=== PATIENT | female | born 1945 | race Caucasian/White ===

== ENCOUNTER 2018-05-04 07:19 | Day surgery (SDC) | payer MEDICARE, BC ==
[2018-05-04] MEDS ORDERED: Midazolam 1 MG/ML 2 ML SDV ONE (07:53)
[2018-05-04] MEDS ORDERED: Propofol 200 MG/20 ML SDV ONE ×3 (07:53→09:22)
[2018-05-04] MEDS ORDERED: fentaNYL 100 MCG/2 ML SDV ONE (07:53)
[2018-05-04] MEDS: Lactated Ringers 1,000 ML IV SCH ×2 (08:00→09:53)
[2018-05-04] MEDS ORDERED: Scopolamine 1.5 MG Transdermal Patch ONE (09:22)
--- NOTE | 2018-05-04 11:06 | PROC ---
DATE OF PROCEDURE: 05/04/2018 INDICATIONS: Merel is a 72-year-old female who comes in for a colonoscopy. She has had change in bowel habits. The stool caliber has been small and she is concerned. The risks and benefits were explained to her and was taken to the OR. PROCEDURE IN DETAIL: Anesthesia was given by nurse bale sewer. The rectum was examined with a gloved finger and then the tube was placed in the rectum. With a gloved finger, there was no abnormality noted. The tube was advanced and did get to 20 cm, noticed significant amount of diverticula. The tube was then advanced to 40 cm. There were multiple diverticula. Unable to find the opening going into the remainder of the colon. The procedure was then terminated and the tube was slowly retracted. Again, noted the multiple diverticula. There was no rectal abnormality noted. The tube was removed. The patient tolerated the procedure well. PREOP: Change in bowel habits, small caliber stools. POSTOP: Failed colonoscopy when it went to 40 cm, unable to advance further. I will schedule an air contrast, lower GI, which will be done today. Minh Lao MD /[id number]
--- NOTE | 2018-05-04 11:43 | PROC ---
DATE OF PROCEDURE: 05/04/2018 INDICATIONS: Merle is a 72-year-old female, who comes in for an EGD because she has had trouble swallowing, food sticks, has a difficult time. The risks and benefits were explained and was brought to the OR. DESCRIPTION OF PROCEDURE: Anesthesia was given by the nurse heel cover splitter. During the procedure, we used 2 mg of Versed, 2 mL of fentanyl, and 600 mg of propofol. With a gloved finger, the tube was placed into the pharynx. The Olympus 180 scope was used and advanced under direct vision and guided into the esophagus. A difficult time getting into the stomach, and there was a narrowed area, but the scope passed through easily. Guided into the stomach, which revealed significant mucosal erythema of the gastric mucosa. The tube was passed into the duodenum, which revealed significant erythema there as well. The tube was advanced into the first and second part of the duodenum. Upon retraction of the tube, noted no ulcerations, such as significant duodenal mucosal erythema. The tube was brought back into the stomach. We got good observation of the greater and lesser curvature and the fundus, which revealed significant erythema. Biopsy was done of the antral area and there was no significant bleeding. Again, the esophagus was observed. The Savary guidewire was left in place and the tube was removed. We then used a 60-Maldivian Savary dilator and dilated the esophagus to 60 Maldivian. The tube was removed and there was a small amount of blood noted on the scope. I then used the gastroscope, and there was significant erythema noted of the mucosa and some bleeding. No rupture was noted. The gastroscope was then removed and the patient tolerated the procedure well. PREOP: Dysphagia. POSTOP: Esophageal stenosis dilated to 60 Maldivian. Minh Lao MD /[id number]
[2018-05-04] MEDS ORDERED: Barium Sulfate 105% w/v Susp 1,900 ML Bottle PO ONE (12:42)
--- NOTE | 2018-05-04 14:46 | CR ---
Barium Enema Comp CLINICAL HISTORY: Incomplete colonoscopy FINDINGS: Preliminary film of the abdomen is unremarkable. Barium flowed freely from the rectum to th e cecum. There is moderate diffuse diverticulosis in the sigmoid and descending colon. There is no ev idence of diverticulitis. The transverse and right colon are moderately redundant. The cecum is ascen ding. There are a few small filling defects in the right colon. There is a 10 x 12 mm filling defect in the right transverse colon near the hepatic flexure. This persistent on the postevacuation film. IMPRESSION: Moderate diverticulosis without evidence of diverticulitis Very redundant right colon with ascending cecum 10 x 12 mm filling defect in the right transverse colon was rather persistent. An adenomatous polyp i s not excluded
== END 2018-05-04 15:00 | disposition home or self-care (01) ==
LOC: JP.SDS 07:19
PROVIDERS: ATTEND Internal Medicine
DX: K22.2 Esophageal obstruction (principal); K31.89 Other diseases of stomach and duodenum; R19.4 Change in bowel habit; K57.30 Diverticulosis of large intestine without perforation or abscess without bleeding; I10 Essential (primary) hypertension; Z88.8 Allergy status to other drugs, medicaments and biological substances
CPT/HCPCS: 43239; 43248; 45330; 74270; A9270; J2250; J2704; J3010; J7120; 88305

== ENCOUNTER 2018-05-11 10:30 | Inpatient (IN) | payer MEDICARE, BC ==
[~2018-05-11 10:30] MED LIST: Dextrose 5%-Lactated Ringers 1,000 ML IV SCH; Ketamine 500 MG/5 ML MDV IV SCH; Neomycin/Polymyxin B 1 ML, Sodium Chloride 0.9% 750 ML ONE; Scopolamine 1.5 MG Transdermal Patch TRDERM SCH
[2018-05-11] MEDS ORDERED: cefOXitin 2 GM in Sodium Chloride 0.9% 50 ML IV ONE (11:00)
[2018-05-12] MEDS ORDERED: Scopolamine 1.5 MG Transdermal Patch TRDERM SCH (06:00)
[2018-05-12] MEDS ORDERED: Neomycin/Polymyxin B 1 ML, Sodium Chloride 0.9% 750 ML ONE ×2 (06:00)
[2018-05-12] MEDS ORDERED: Dextrose 5%-Lactated Ringers 1,000 ML IV SCH (06:00)
[2018-05-12] MEDS: cefOXitin 2 GM in Sodium Chloride 0.9% 50 ML IV ONE ×2 (07:00→11:52)
[2018-05-12] MEDS ORDERED: Rocuronium 50 MG/5 ML Vial ONE (07:06)
[2018-05-12] MEDS ORDERED: Ondansetron 4 MG/2 ML SDV ONE (07:06)
[2018-05-12] MEDS ORDERED: Neostigmine Methylsulfate 1 MG/ML 5 ML Syringe ONE (07:06)
[2018-05-12] MEDS ORDERED: fentaNYL 250 MCG/5 ML SDV ONE (07:06)
[2018-05-12] MEDS ORDERED: Dexamethasone 4 MG/ML SDV ONE (07:06)
[2018-05-12] MEDS ORDERED: Propofol 200 MG/20 ML SDV ONE (07:06)
[2018-05-12] MEDS ORDERED: Glycopyrrolate 0.2 MG/ML 5 ML MDV ONE (07:06)
[2018-05-12] MEDS ORDERED: Naloxone 0.4 MG/ML SDV IVPUSH PRN (07:30)
[2018-05-12] MEDS ORDERED: Ketamine 500 MG/5 ML MDV IV SCH (07:30)
[2018-05-12] MEDS ORDERED: Sodium Chloride 0.9% 10 ML ONE (07:34)
[2018-05-12] MEDS: Meropenem 500 MG SDV ONE ×2 (08:27→09:00)
[2018-05-12] MEDS ORDERED: Lactated Ringers 1,000 ML ONE (08:45)
[2018-05-12] MEDS ORDERED: Naloxone 0.4 MG/ML SDV IV PRN (11:16)
[2018-05-12] MEDS ORDERED: diphenhydrAMINE 50 MG/ML SDV IVPUSH PRN (11:16)
[2018-05-12] MEDS ORDERED: Ondansetron 4 MG/2 ML SDV IVPUSH PRN (11:18)
[2018-05-12] MEDS ORDERED: Metoclopramide 10 MG/2 ML SDV IVPUSH PRN (11:19)
[2018-05-12] MEDS ORDERED: hydrOXYzine HCl 100 MG/2 ML SDV IM PRN (11:20)
[2018-05-12] MEDS: Pantoprazole 40 MG Vial IV SCH (11:47)
[2018-05-12] MEDS: cefOXitin 2 GM in Sodium Chloride 0.9% 50 ML IV SCH ×2 (13:36→20:14)
[2018-05-12] MEDS ORDERED: Lactated Ringers 500 ML IV ONE (14:23)
[2018-05-12] MEDS: fentaNYL 2,500 MCG in Sodium Chloride 0.9% 200 ML EPIDUR SCH (14:31)
[2018-05-12] MEDS: Dextrose 5%-Lactated Ringers 1,000 ML IV SCH (19:08)
[2018-05-12] MEDS: Tamsulosin 0.4 MG Cap.ER PO SCH (20:15)
[2018-05-13] MEDS: cefOXitin 2 GM in Sodium Chloride 0.9% 50 ML IV SCH ×2 (01:20→08:24)
[2018-05-13] MEDS: Dextrose 5%-Lactated Ringers 1,000 ML IV SCH (02:03)
[2018-05-13] MEDS: Acetaminophen 500 MG Tab PO SCH ×4 (05:04→23:09)
[2018-05-13] MEDS: fentaNYL 2,500 MCG in Sodium Chloride 0.9% 200 ML EPIDUR SCH (07:26)
[2018-05-13] MEDS ORDERED: Dextrose 5%-0.9% NaCl with KCl 1,000 ML IV SCH (10:15)
[2018-05-13] MEDS: Magnesium Sulfate/Water 2 GM in Premix Bag 1 BAG IV SCH ×3 (11:27→22:26)
[2018-05-13] MEDS: Bisacodyl 5 MG Tab PO SCH ×2 (11:31→20:42)
[2018-05-13] MEDS: Ibuprofen 400 MG Tab PO SCH ×3 (11:31→22:27)
[2018-05-13] MEDS: Pantoprazole 40 MG Vial IV SCH (11:32)
[2018-05-13] MEDS: amLODIPine 10 MG Tab PO SCH (12:50)
[2018-05-13] MEDS: Hydrochlorothiazide 12.5 MG Cap PO SCH (12:50)
[2018-05-13] MEDS: traMADol 50 MG Tab PO SCH ×3 (12:51→22:28)
[2018-05-13] MEDS ORDERED: Dextrose 5%-Lactated Ringers 1,000 ML IV SCH (16:00)
[2018-05-13] MEDS: Dextrose 5%-0.9% NaCl with KCl 1,000 ML IV SCH (18:59)
[2018-05-13] MEDS: Tamsulosin 0.4 MG Cap.ER PO SCH (20:44)
[2018-05-14] MEDS: Dextrose 5%-0.9% NaCl with KCl 1,000 ML IV SCH ×2 (02:37→10:40)
[2018-05-14] MEDS: Magnesium Sulfate/Water 2 GM in Premix Bag 1 BAG IV SCH ×3 (03:48→15:35)
[2018-05-14] MEDS: Ibuprofen 400 MG Tab PO SCH ×4 (04:22→23:16)
[2018-05-14] MEDS: traMADol 50 MG Tab PO SCH ×5 (04:22→23:17)
[2018-05-14] MEDS: Acetaminophen 500 MG Tab PO SCH ×4 (05:18→23:18)
[2018-05-14] MEDS ORDERED: Lidocaine 1% with EPINEPHrine 1:100,000 50 ML MDV ONE (07:18)
[2018-05-14] MEDS ORDERED: Bupivacaine 0.5% 50 ML MDV ONE (07:18)
[2018-05-14] MEDS ORDERED: Propofol 200 MG/20 ML SDV ONE (07:53)
[2018-05-14] MEDS ORDERED: Ondansetron 4 MG/2 ML SDV ONE (07:53)
[2018-05-14] MEDS ORDERED: Ropivacaine 32 ML, Dexamethasone 8 MG, EPINEPHrine 0.4 MG, Sodium Chloride 0.9% 45.6 ML NERVRT SCH ×4 (08:00)
[2018-05-14] MEDS ORDERED: Meropenem 500 MG SDV ONE (08:13)
--- NOTE | 2018-05-14 11:27 | PN ---
DATE OF SERVICE: 05/13/2018 The patient has been afebrile with stable vital signs. No major problems were noted overnight. Urine output has just been adequate, so we will leave the IV rate going a little bit faster. Creatinine is stable at 0.7. It is notable that her sodium and chloride are both low. These will be supplemented by changing IV to D5 normal saline with 20 mEq of KCl per liter. Her magnesium is also low and that will be supplemented. Otherwise, we will continue the enhanced recovery protocol, starting with ibuprofen and tramadol today along with Senna Plus and Dulcolax oral tablets. The plan will be to proceed with a delayed primary closure and discontinuing the epidural catheter tomorrow. Her blood pressures are running in the one-teens to low 120 systolic, so we will restart the hydrochlorothiazide and amlodipine, but hold onto the lisinopril for now. Rich Sanchez MD /[id number]
--- NOTE | 2018-05-14 11:37 | PN ---
DATE OF SERVICE: 05/14/2018 The patient has been afebrile with stable vital signs. The epidural catheter will be taken out today. I think we can restart the amlodipine and hydrochlorothiazide. Otherwise, she was little bit nauseated in the morning. She did have 1360 in for oral intake yesterday. She is not passing any flatus or bowel movement as of yet. We will give her a Dulcolax suppository today. Otherwise, the wound will be closed, epidural will be stopped, and Sosa catheter coming out. Rich Sanchez MD Job #: [id number]
[2018-05-14] MEDS: Mupirocin Oint 22 GM Tube TOP SCH ×2 (12:03→21:43)
[2018-05-14] MEDS: Pantoprazole 40 MG Vial IV SCH (12:03)
[2018-05-14] MEDS: Metoclopramide 10 MG/2 ML SDV IVPUSH SCH ×2 (12:04→15:35)
[2018-05-14] MEDS: Hydrochlorothiazide 12.5 MG Cap PO SCH (13:36)
[2018-05-14] MEDS: Bisacodyl 5 MG Tab PO SCH ×2 (13:36→21:43)
[2018-05-14] MEDS: amLODIPine 10 MG Tab PO SCH (13:36)
--- NOTE | 2018-05-14 14:09 | OR ---
DATE OF PROCEDURE: 05/14/2018 PREOPERATIVE DIAGNOSIS: Open abdominal incision. POSTOPERATIVE DIAGNOSIS: Open abdominal incision. OPERATIVE PROCEDURE: Delayed primary closure of open abdominal incision. ANESTHESIA: Local plus IV sedation. INDICATION FOR PROCEDURE: The patient is 2 days status post total abdominal colectomy, at which time, the skin and subcutaneous tissue were felt to be at high risk for a wound infection and primary closure was undertaken. Given this, the patient is to undergo a delayed primary closure today. Potential risks including bleeding and infection were reviewed, and the patient wishes to proceed. DETAILS OF PROCEDURE: The patient was taken to the operating room and placed in a supine position, sitting somewhat upright in the 30-degree range to minimize aspiration risk. IV sedation was administered. Bilateral subcostal transversus abdominis plane blocks were then placed with continuous ultrasound guidance using the standard solution bilaterally. Following this, the dressing was taken down. The wound was examined and was found to be clean. The incision was then prepped and draped, anesthetized with 1% lidocaine mixed with Marcaine and irrigated with meropenem-containing saline solution. The incision was then drained with a 10-Belarusian round Mark-Vaz drain and brought through a small stab wound beneath the main incision. The incision was then closed with 3-0 Vicryl stitch deep and then mars for the skin. Dressing was applied. The patient was taken to the recovery room in a satisfactory condition. Rich Sanchez MD Job #: [id number]
[2018-05-14] MEDS ORDERED: Bisacodyl 10 MG Supp RECTAL ONE (16:00)
[2018-05-14] MEDS ORDERED: Bisacodyl 10 MG Supp RECTAL PRN (20:00)
[2018-05-14] MEDS: Tamsulosin 0.4 MG Cap.ER PO SCH (21:45)
[2018-05-15] MEDS: traMADol 50 MG Tab PO SCH ×2 (04:07→09:35)
[2018-05-15] MEDS: Ibuprofen 400 MG Tab PO SCH (04:08)
[2018-05-15] MEDS: Acetaminophen 500 MG Tab PO SCH ×2 (06:09→12:40)
[2018-05-15] MEDS: Mupirocin Oint 22 GM Tube TOP SCH (09:24)
[2018-05-15] MEDS: Hydrochlorothiazide 12.5 MG Cap PO SCH (09:25)
[2018-05-15] MEDS: amLODIPine 10 MG Tab PO SCH (09:28)
--- NOTE | 2018-05-15 09:55 | DISCH ---
ADMISSION DIAGNOSES: 1. 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 2. Colonic lesion. 3. Mixed hyperlipidemia. 4. Alcoholic liver disease. 5. Essential hypertension. DISCHARGE DIAGNOSES: Delayed primary closure on 05/14/2018 and exploratory laparotomy with total abdominal colectomy with proctostomy, removal of intraperitoneal mesh adherent to sigmoid colon, total abdominal hysterectomy with bilateral salpingo-oophorectomy and mobilization of omentum into pelvis for megacolon with multiple points of stricture secondary to diverticulitis along descending and sigmoid colons, hepatic flexure polyps, intraperitoneal mesh adherent to sigmoid colon, and large uterine mass. Date of surgery, 05/12/2018. HISTORY: Merle Valiente is a 72-year-old female with a colonic lesion. After preoperative evaluation and discussion of possible risks and possible complications, she wished to proceed with surgical procedure. HOSPITAL COURSE: Merle had her surgery on 05/12/2018 with a delayed primary closure on 05/14/2018. She had no operative complications. Her diet was advanced appropriately, as tolerated. She was voiding without difficulty. Pain was well managed. Activity was good. She did have a low magnesium, and this was replaced IV. She was able to be discharged to home without any complications on 05/15/2018. There was a duplex scan pending due to discrepancy in blood pressures between her right and left. PHYSICAL EXAMINATION: GENERAL: Merle Valiente is a 72-year-old female. VITAL SIGNS: Height is 5 feet 1 inch. Weight is 143 pounds. TPR is 98.8, 79, 16, and blood pressure 115/60. HEENT: Negative. NECK: Supple. HEART: Regular rate and rhythm. LUNGS: Clear. ABDOMEN: Mabie intact. She has 3 LONG drains; one in the midline, which there is no drainage in; the peripheral LONG drain showed bright red blood, which is new. According to the night nurse, prior to that, her drains have been serosanguineous. When last checked this morning on rounds, it was bright red. She had 140 out of one and 70 out of the other. Hemoglobin checked, and her hemoglobin from 05/13/2018 went from 11.1 down to 9.9. Abdominal binder has been on. EXTREMITIES: Without peripheral edema. Rich Sanchez MD, was notified of bleeding in LONG drains. DISPOSITION: Discharged to home. CONDITION: Stable and improving. FOLLOWUP APPOINTMENT: With Rich Sanchez MD, on 05/24/2018 at 11:15 a.m. DISCHARGE MEDICATIONS: Home Medications: 1. Tylenol Extra Strength 500 mg q.6 hours p.r.n. pain. 2. Tramadol 50 mg q.6 hours orally p.r.n. pain, #40. To resume home medications of; 1. Hydrochlorothiazide 12.5 mg daily. 2. Lisinopril 40 mg daily. 3. Multivitamin 1 tablet daily. 4. Amlodipine besylate 10 mg oral daily. DISCHARGE DIET: Usual diet as tolerated. Drink 8 to 10 glasses of water a day. ACTIVITY: No lifting greater than 10 pounds for 6 weeks. Other activity, walk 6 times daily inside your home. Driving, do not drive while on pain medication. May shower. DISCHARGE INSTRUCTIONS: Notify provider if any fever, increased pain, nausea, or vomiting. Keep site clean and dry. Wear abdominal binder for 6 weeks and then as tolerated. Special instruction, use incentive spirometer 10 times every hour while awake and to strip, empty, drain, and record LONG drain 4 times a day and when half full.
[2018-05-15] MEDS: Pantoprazole 40 MG Vial IV SCH (10:47)
[2018-05-15] MEDS ORDERED: Coagulation Factor VIIa Recombinant (per MCG) 2 MG Vial IVPUSH ONE (12:15)
--- NOTE | 2018-05-15 14:15 | US ---
VL Duplex Upr Ext Art Comp CLINICAL HISTORY: Asymmetric blood pressure , lower left upper extremity FINDINGS: Real-time and Doppler images were obtained from the left neck supraclavicular and the left upper extremity. Triphasic waveforms are seen in the common carotid artery. The biphasic waveforms ar e seen in the subclavian artery throughout its length the to the axillary artery and mid brachial art azael. Monophasic waveforms are seen in the ulnar radial and palmar arteries. There is a drop off of ve locity in the subclavian artery. IMPRESSION: No focal arterial stenosis is identified. There is a drop off of velocity in the left sub clavian artery. The given the clinical history of the diminished the left upper extremity blood press ure thoracic and axillary CTA or MRA should be considered.
--- NOTE | 2018-05-15 16:19 | OR ---
DATE OF PROCEDURE: 05/12/2018 PREOPERATIVE DIAGNOSES: 1. Megacolon with multiple points of stricture secondary to diverticular disease along the descending and sigmoid colon. 2. Hepatic flexure colonic polyp, not accessible to endoscopic removal. POSTOPERATIVE DIAGNOSES: 1. Megacolon with multiple points of stricture secondary to diverticular disease along the descending and sigmoid colon. 2. Hepatic flexure colonic polyp, not accessible to endoscopic removal. 3. Intraperitoneal mesh adherent to sigmoid colon. 4. Large uterine mass. OPERATIVE PROCEDURES: Exploratory laparotomy with; 1. Total abdominal colectomy with ileoproctostomy (05689). 2. Removal of a portion of intraperitoneal mesh adherent to sigmoid colon (57079). 3. Total abdominal hysterectomy and bilateral salpingo-oophorectomy (24655). 4. Mobilization of omentum into pelvis to displace small bowel in the event of indications for postoperative radiotherapy (92722). ANESTHESIA: General plus epidural. ASSISTANTS: 1. Norma Judd PA-C. 2. ADITI Armstrong. INDICATION FOR PROCEDURE: This is a 72-year-old presenting with a fairly-striking megacolon. The colonoscope was not able to be passed proximal to around the [id number] sigmoid colon, very likely related to diverticular disease. Subsequent barium enema showed a strikingly elongated and enlarged colon on the right side and multiple narrow stricturing and narrowing of the descending and sigmoid colon related to diverticular disease. She also has a polyp located in the hepatic flexure of the colon, which was not accessible to endoscopic sampling. Given this, after discussion, the patient would like to proceed with a total abdominal colectomy with ileorectal anastomosis. Potential risks including bleeding, infection, leaks from various GI tract closures, problems with bowel obstruction over time, as well as the possibility of cardiopulmonary, septic, or hemorrhagic complications leading to were discussed, and the patient wishes to proceed. She is aware that she will typically have 2 to 3 loose bowel movements today once the patient gets waste out postoperatively with the total abdominal colectomy. DETAILS OF PROCEDURE: The patient was taken to the operating room, had an epidural catheter placed, and the patient was then placed in a supine position. General endotracheal anesthetic was induced along with a Sosa catheter. A midline incision which eventually extended from roughly a handsbreadth's below the xiphoid to the pubis was made and carried down through the full-thickness of the abdominal wall. Upon entering the peritoneal cavity, the patient was noted to have the diverticular disease noted. She did have a previous mesh repair of the lower abdomen and a portion of this was adherent to the sigmoid colon. A portion of the intraperitoneal mesh was then excised and sent as a separate specimen. The mesh did need to be divided to a large extent in the lower part of the incision. Once this mesh was divided, the care was taken to cordon off that mesh with meropenem-containing soaked sponges to prevent contamination of the mesh. At this point, the patient was confirmed to have the extensive diverticular disease on the left colon. The polyp on the right side could not be obviously identified, but would clearly be removed within the resected specimen. At this point, the distal small bowel was divided with a NKECHI govea load. The omentum was freed up from the transverse colon. After that, then the peritoneal reflexion of the cecum and ascending colon was divided, and those portions of the colon reflected medially with care taken to avoid injury to the right ureter and duodenum. At this point, the rectum was divided with a NKECHI curved black load and, similarly, the lateral peritoneal reflection of the sigmoid colon and descending colon were then taken down with electrocautery along with blunt dissection, again, with care taken to avoid injury to the left ureter in this case. The attachments to the splenic flexure were then also taken down with a combination of blunt cautery and staple technique. This then allowed the total abdominal colectomy completed by division of the mesentry with a combination of govea and mesenteric loads, and the specimen was delivered from the field. At this point, further exploration revealed a roughly chicken-egg sized quite hard mass involving the uterus. There did not appear to be any tubal or peritoneal disease associated with this and it did not appear to be full thickness; however, it was quite hard and certainly suspicious for possible sarcoma. Give this, we then proceeded with total abdominal hysterectomy and bilateral salpingo-oophorectomy. The infundibulopelvic broad and round ligaments were then sequentially divided with NKECHI mars. The peritoneal reflection of the bladder on uterus was then divided and reflected downward onto the upper vagina. The cardinal ligaments were then taken with blue staple loads and after freeing the bladder somewhat further, a curved black NKECHI load was placed across the upper vagina and fired, thus removing the entire uterus, the tubes and ovaries. At this point, no further problems were noted. The abdomen was irrigated with antibiotic- containing saline solution. Two Mark-Vaz drains were placed, one on the right side and one on the left side, then positioned, and then taken down the colic gutters and down toward the pelvis. In the event that the patient might need postoperative radiotherapy in the pelvis, the omentum was then mobilized down into the pelvis to displace small bowel in those areas and fixed there with some 3-0 Vicryl stitch. The midline fascia was then approximated with #2 Vicryl stitch. The skin and subcutaneous tissue were felt to be at high risk for a wound infection should those be closed, and so they were packed open for a planned delayed primary closure in 48 hours. The patient was taken to the recovery room in a satisfactory condition. There were no evident complications. Physician's administrative assistant front desk, Norma Judd, played an essential role in assisting in this case, helping to position the patient, retract structures as needed, as well as suturing and cutting sutures when indicated. Her presence improved patient safety and decreased the operative time. Rich Sanchez MD Job #: [id number]
== END 2018-05-15 13:15 | disposition home or self-care (01) | DRG 330 ==
LOC: JP.SDSSCHI 05-12 05:22 → JP.SDS 05-12 05:22 → EDSTATUS 05-12 07:15 → JP.2SS 05-12 09:00
PROVIDERS: ADMIT Surgery; ATTEND Surgery
PROC: 0DTG0ZZ Resection of Left Large Intestine, Open Approach (ICD-10-PCS; principal; 2018-05-12)
PROC: 0DTF0ZZ Resection of Right Large Intestine, Open Approach (ICD-10-PCS; 2018-05-12)
PROC: 0D1B0ZP Bypass Ileum to Rectum, Open Approach (ICD-10-PCS; 2018-05-12)
PROC: 0UT90ZZ Resection of Uterus, Open Approach (ICD-10-PCS; 2018-05-12)
PROC: 0UT20ZZ Resection of Bilateral Ovaries, Open Approach (ICD-10-PCS; 2018-05-12)
PROC: 0UT70ZZ Resection of Bilateral Fallopian Tubes, Open Approach (ICD-10-PCS; 2018-05-12)
PROC: 0DNU0ZZ Release Omentum, Open Approach (ICD-10-PCS; 2018-05-12)
PROC: 0WPF0JZ Removal of Synthetic Substitute from Abdominal Wall, Open Approach (ICD-10-PCS; 2018-05-12)
PROC: 0WQF0ZZ Repair Abdominal Wall, Open Approach (ICD-10-PCS; 2018-05-14)
DX: K59.39 Other megacolon (principal); K57.32 Diverticulitis of large intestine without perforation or abscess without bleeding; E87.1 Hypo-osmolality and hyponatremia; K66.0 Peritoneal adhesions (postprocedural) (postinfection); N85.9 Noninflammatory disorder of uterus, unspecified; Z47.1 Aftercare following joint replacement surgery; I10 Essential (primary) hypertension; E78.2 Mixed hyperlipidemia; K70.9 Alcoholic liver disease, unspecified; K63.9 Disease of intestine, unspecified; I99.8 Other disorder of circulatory system; E83.42 Hypomagnesemia; E87.8 Other disorders of electrolyte and fluid balance, not elsewhere classified; Z88.8 Allergy status to other drugs, medicaments and biological substances
CPT/HCPCS: 36415; 51702; 80048; 80053; 82378; 83735; 83880; 84100; 85027; 93930; 93930-26; 94762; A9270-GY; C9113; J0131; J0171; J0694; J1100; J2185; J2405; J2704; J2710; J2765; J2795; J3010; J3475; J3480; J7042; J7050; J7120; J7189

== ENCOUNTER 2018-05-16 06:58 | Emergency (ER) | payer MEDICARE, BC ==
--- NOTE | 2018-05-16 08:06 | EDM.PDOC ---
ED HPI GENERAL MEDICAL PROBLEM - General Chief Complaint: Gastrointestinal Problem Stated Complaint: VOMITING HAD COLON SURGERY Time Seen by Provider: 05/16/18 07:45 Source of Information: Reports: Patient, Family History Limitations: Reports: No Limitations - History of Present Illness INITIAL COMMENTS - FREE TEXT/NARRATIVE: 72-year-old female was discharged yesterday after partial colectomy has had a setback over the past 24 hours with nausea and vomiting, loose green stools, generalized malaise and weakness. Her main concern is that even her medications this morning she vomited, she feels her abdomen is more distended. No fevers. Onset: Gradual (Over the past 24 hours) Location: Reports: Abdomen Severity: Moderate Worsens with: Reports: Other (Taking anything orally causes increased nausea and emesis) Abdomen Pain Score (Numeric/FACES): 9 - Related Data Allergies Allergy/AdvReac Type Severity Reaction Status Date / Time venom-honey bee Allergy Severe Anaphylactic Verified 05/16/18 07:54 [bee venom (honey bee)] Shock lovastatin Allergy Cannot Verified 05/17/18 11:00 Remember Home Meds: Home Meds Hydrochlorothiazide 12.5 mg PO DAILY 11/19/14 [History] Lisinopril 40 mg PO DAILY 11/19/14 [History] amLODIPine Besylate [Amlodipine Besylate] 5 mg PO DAILY 11/19/14 [History] Acetaminophen [Tylenol Extra Strength] 1,000 mg PO Q6H tablet 05/15/18 [Rx] Past Medical History HEENT History: Reports: Impaired Vision Other HEENT History: wears glasses Cardiovascular History: Reports: Hypertension, SOB on Exertion Gastrointestinal History: Reports: Chronic Constipation, Chronic Diarrhea, Colon Polyp [employer]PER[employer] History: Reports: Musculoskeletal History: Reports: Arthritis Neurological History: Reports: Concussion Hematologic History: Reports: Anemia Dermatologic History: Reports: Eczema - Infectious Disease History Infectious Disease History: Reports: Chicken Pox, Measles, Mumps - Past Surgical History HEENT Surgical History: Reports: Cataract Surgery, Other (See Below) Other HEENT Surgeries/Procedures: wisdom teeth GI Surgical History: Reports: Colonoscopy, Hernia, Abdominal, Hernia, Inguinal, Small Bowel Female Surgical History: Reports: Hysterectomy, Oophorectomy Neurological Surgical History: Reports: Other (See Below) Other Neurological Surgeries/Procedures: coccyx removed due to a "growth" Musculoskeletal Surgical History: Reports: Other (See Below) Other Musculoskeletal Surgeries/Procedures:: torn meniscus on right knee Social & Family History - Family History Family Medical History: Noncontributory Neurological: Reports: Seizure Endocrine/Metabolic: Reports: Hypothyroidism Oncologic: Reports: Breast, Colon, Other (See Below) Other Oncologic Family History: stomach - Tobacco Use Smoking Status *Q: Never Smoker - Caffeine Use Caffeine Use: Reports: Coffee - Alcohol Use Days Per Week of Alcohol Use: 7 Number of Drinks Per Day: 2 Total Drinks Per Week: 14 - Recreational Drug Use Recreational Drug Use: No ED ROS GENERAL - Review of Systems Review Of Systems: See Below Constitutional: Reports: Chills. Denies: Fever HEENT: Reports: No Symptoms Respiratory: Denies: Shortness of Breath Cardiovascular: Denies: Chest Pain GI/Abdominal: Reports: Abdominal Pain, Diarrhea, Nausea, Vomiting : Reports: No Symptoms Neurological: Reports: No Symptoms ED EXAM, GI/ABD - Physical Exam Exam: See Below Exam Limited By: No Limitations General Appearance: Alert, Mild Distress (Patient appears uncomfortable) Eyes: Bilateral: Normal Appearance Head: Atraumatic Respiratory/Chest: No Respiratory Distress, Lungs Clear Cardiovascular: Regular Rate, Rhythm GI/Abdominal Exam: Normal Bowel Sounds, Soft, Distended (Mild distention is possible, she has diffuse tenderness but no focal guarding. Incision looks excellent.) Extremities: No: Pedal Edema Neurological: Alert, Oriented Skin Exam: Warm, Dry, Ecchymosis (There is ecchymosis and bruising typical of expectations postsurgically on the abdomen) Course - Vital Signs Last Recorded V/S: Last Vital Signs Temp 97.3 F 05/16/18 07:40 Pulse 93 05/16/18 07:40 Resp 16 05/16/18 07:40 BP 153/72 H 05/16/18 07:40 Pulse Ox 95 05/16/18 07:40 - Orders/Labs/Meds Meds: Medications Discontinued Medications Generic Name Dose Route Start Last Admin Trade Name Freq PRN Reason Stop Dose Admin Ondansetron HCl 4 mg 05/16/18 08:25 05/16/18 08:30 Zofran Odt PO 05/16/18 08:26 4 mg ONETIME ONE Administration - Re-Assessments/Exams Free Text/Narrative Re-Assessment/Exam: 06/19/18 08:05 I am concerned this patient may have developed a postoperative ileus, and a flat and upright x-ray will be obtained. 05/16/18 08:26 Two-view abdominal x-ray actually looks reassuring. Patient was given a 4 mg sublingual dose of Zofran with 5 additional doses to take home. She can return if not improving satisfactorily. Departure - Departure Time of Disposition: 19:01 Disposition: Home, Self-Care 01 Condition: Fair Clinical Impression: Postoperative nausea and vomiting - Discharge Information Instructions: Nausea and Vomiting, Adult, [id number] Referrals: Minh Lao Sr, MD [Primary Care Provider] - Forms: ED Department Discharge Care Plan Goals: Try Zofran every 6 hours to control nausea and continue your current medications as prescribed. Increase diet slowly and as tolerated, return anytime if worsening or concerns.
[2018-05-16] MEDS ORDERED: Ondansetron 4 MG Tab.DIS PO ONE (08:25)
--- NOTE | 2018-05-16 09:30 | CR ---
Abdomen 2V AP Flat Upright CLINICAL HISTORY: Abdominal pain, postop FINDINGS: There are scattered air-filled loops of small bowel with a few scattered air-fluid levels. There are surgical drains in the abdomen. Impression: Recent abdominal surgery with surgical drains in place Small bowel distention in a nonspecific pattern. This may represent postop ileus
== END 2018-05-16 09:02 | disposition home or self-care (01) ==
LOC: JP.ED 06:58
DX: K91.0 Vomiting following gastrointestinal surgery (principal); I10 Essential (primary) hypertension; M19.90 Unspecified osteoarthritis, unspecified site; Z91.030 Bee allergy status; Z88.8 Allergy status to other drugs, medicaments and biological substances; Z79.899 Other long term (current) drug therapy
CPT/HCPCS: 74019; 99284; A9270

== ENCOUNTER 2018-05-17 09:32 | Inpatient (IN) | payer MEDICARE, BC ==
[2018-05-17] MEDS ORDERED: HYDROmorphone/Normal Saline 15 MG/30 ML PCA IV PRN (09:57)
[2018-05-17] MEDS ORDERED: Naloxone 0.4 MG/ML SDV IV PRN (10:00)
[2018-05-17] MEDS ORDERED: MVI, Adult with Vitamin K 10 ML, Chromium/Copper/Mang/Selen/Zn 1 ML, Thiamine 100 MG in... IV ONE ×4 (11:00)
[2018-05-17] MEDS: amLODIPine 10 MG Tab PO SCH (11:08)
[2018-05-17] MEDS: Metoclopramide 10 MG/2 ML SDV IVPUSH SCH ×3 (11:10→23:24)
[2018-05-17] MEDS: Ondansetron 4 MG/2 ML SDV IVPUSH SCH ×4 (11:10→21:51)
[2018-05-17] MEDS: Pantoprazole 40 MG Vial IV SCH ×2 (11:10→23:24)
[2018-05-17] MEDS: Dextrose 5%-Lactated Ringers 1,000 ML IV SCH ×2 (13:51→21:51)
[2018-05-18] MEDS: Ondansetron 4 MG/2 ML SDV IVPUSH SCH ×3 (02:25→09:36)
[2018-05-18] MEDS: Metoclopramide 10 MG/2 ML SDV IVPUSH SCH ×4 (05:10→22:16)
[2018-05-18] MEDS: Dextrose 5%-Lactated Ringers 1,000 ML IV SCH ×2 (06:12→18:19)
--- NOTE | 2018-05-18 07:12 | PCM.HP ---
H&P History of Present Illness - General Date of Service: 05/18/18 Admit Problem/Dx: Admission Diagnosis/Problem Admission Diagnosis/Problem Ileus Source of Information: Patient History Limitations: Reports: No Limitations - History of Present Illness Initial Comments - Free Text/Narative: Patient had a total colectomy and a total hysterectomy on 05/12/2018. She had no pain on the day of discharge, but once the epidural and pain medication wore off she was experiencing sharp constant pain localized inferior to the umbilicus and laterally to the right side. The pain had not improved nor has anything relived the symptoms. She had tried Tylenol and Tramadol. Although the Tylenol did not work as she was not able to swallow it and the Tramadol made her experience hallucinations as stated by the patient. Prior to surgery she was also experiencing pain, but it was not as bad in comparison to now. Laying down has helped relive the pain although trying to sit up has been excruciating. The patient was admitted through the ER when she could no longer tolerate the pain at home. She has had a loss of appetite and has not been able to swallow food while at home. She states that it gets to about mid throat and gets "stuck" and then she coughs it back up. She has been experiencing nausea, vomiting and diarrhea since discharge. She denies chest pain, SOB, ALMAZAN, coughing , headaches, fever, chills, night sweats, malaise, lightheadedness, syncope, difficulty urinating or mike blood in the stool. Onset of Symptoms: Reports: Other (Since surgery 05/12/2018) Duration of Symptoms: Reports: Constant Location: Reports: Abdomen Quality: Reports: Sharp Severity: Severe Improves with: Reports: None (Tried to take tyleno and could not keep it down. Tried tramadol and was seeing things so did not take it again. Has not taken tramado in the past and refuses to take it again for pain. ) Worsens with: Reports: Eating (No appetite. ), Immobilization (Laying down and getting back up. ) Context: Reports: Rest Associated Symptoms: Reports: Loss of Appetite, Malaise, Nausea/Vomiting (Could not eat. States everything made it to midway through throat and came back up. ) Abdomen Pain Score (Numeric/FACES): 6 - Related Data Allergies/Adverse Reactions: Allergies Allergy/AdvReac Type Severity Reaction Status Date / Time venom-honey bee Allergy Severe Anaphylactic Verified 05/16/18 07:54 [bee venom (honey bee)] Shock lovastatin Allergy Cannot Verified 05/17/18 11:00 Remember Home Medications: Home Meds Hydrochlorothiazide 12.5 mg PO DAILY 11/19/14 [History] Lisinopril 40 mg PO DAILY 11/19/14 [History] amLODIPine Besylate [Amlodipine Besylate] 5 mg PO DAILY 11/19/14 [History] Acetaminophen [Tylenol Extra Strength] 1,000 mg PO Q6H tablet 05/15/18 [Rx] Past Medical History HEENT History: Reports: Impaired Vision Other HEENT History: wears glasses Cardiovascular History: Reports: Hypertension (Lisinopril and Amlodipine. 10 year history.) Gastrointestinal History: Reports: Chronic Constipation, Chronic Diarrhea (Has not had C. Diff in the past.), Colon Polyp, Fecal Incontinence (Denies.) Other Gastrointestinal History: The chronic diarrhea and constipation was going on for 3-4 months prior to surgery. Patient states it was always one or the other never a soft formed bowel movement. MONUMENT CARVER History: Reports: Other OB/BYN History: removal of ovaries and uterus. Musculoskeletal History: Reports: Arthritis (Right shoulder. Osteoarthritis.) Neurological History: Reports: Concussion (Had three in the past.) Hematologic History: Reports: Anemia (Many years ago. Is no longer being treated for the anemia.) Dermatologic History: Reports: Eczema (Havn't had in many years. Had a prior history during childhood.) - Infectious Disease History Infectious Disease History: Reports: Chicken Pox, Measles, Mumps - Past Surgical History HEENT Surgical History: Reports: Cataract Surgery, Other (See Below) Other HEENT Surgeries/Procedures: wisdom teeth GI Surgical History: Reports: Colon, Colonoscopy, Hernia, Abdominal, Hernia, Inguinal, Polypectomy, Small Bowel Female Surgical History: Reports: Hysterectomy, Oophorectomy Neurological Surgical History: Reports: Other (See Below) Other Neurological Surgeries/Procedures: coccyx removed due to a "growth" Musculoskeletal Surgical History: Reports: Other (See Below) Other Musculoskeletal Surgeries/Procedures:: Torn meniscus on right knee. Surgery for the wrist in 2000. Broke both left ulna and radius. Had reconstructive surgery in [place]. Social & Family History - Family History Other Cardiac Family History: Denies family history of OH, atherosclosis, HF. Other GI Family History: Mom had colon cancer. Brother passed had gastric cancer and a cancerous neck mass diagnosed in his 60s. Dad had gastric cancer. Brother 24 of stomach cancer. Denies diverticulitis and Chrons disease. Neurological: Reports: Seizure (Brother that at 24 had history of epileptic seizures.) Endocrine/Metabolic: Reports: Hyperthyroidism (Daughter had thyroid removed.) Oncologic: Reports: Breast, Colon (See GI FH.), Other (See Below) Other Oncologic Family History: stomach - Tobacco Use Smoking Status *Q: Former Smoker (Smoked for 26 years and has quit for 27 years. ) Years of Tobacco use: 26 Packs/Tins Daily: 1 Used Tobacco, but Quit: Yes Month/Year Tobacco Last Used: January 1991 Second Hand Smoke Exposure: No - Caffeine Use Caffeine Use: Reports: Coffee, Tea Caffeine Use Comment: about 1 cup per day - Alcohol Use Days Per Week of Alcohol Use: 6 Number of Drinks Per Day: 2 Total Drinks Per Week: 12 Date of Last Drink: 05/03/18 Time of Last Drink: 21:00 Alcohol Use Frequency: Daily (Has a glass or two of wine with dinner.), Socially - Recreational Drug Use Recreational Drug Use: No - Living Situation & Occupation Living situation: Reports: (Living at home alone. 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 ), Decreased Appetite, Distension, Nausea, Vomiting (Due to not being able to swallow. ) Exam - Exam Exam: See Below - Vital Signs Vital Signs: Last Vital Signs Temp 99.1 F 05/18/18 02:09 Pulse 83 05/18/18 02:09 Resp 18 05/18/18 02:09 BP 122/58 L 05/18/18 02:09 Pulse Ox 95 05/18/18 02:09 Weight: 148 lb 6.4 oz - Exam General: Alert, Oriented, Cooperative HEENT: Conjunctiva Clear, EOMI, Hearing Intact, Mucosa Moist & [place], Nares Patent, Normal Nasal Septum Neck: Supple, Trachea Midline, Full Range of Motion Lungs: Clear to Auscultation, Normal Respiratory Effort Cardiovascular: Regular Rate, Regular Rhythm GI/Abdominal Exam: Normal Bowel Sounds, Distended, Guarding, Tender (Localized inferior to umbilicus and laterally to the right side. Left side not tender. ) Extremities: Normal Inspection, Normal Range of Motion, Non-Tender Skin: Warm, Dry, Intact Neuro Extensive - Mental Status: Alert, Oriented x3, Normal Mood/Affect, Normal Cognition, Memory Intact Psychiatric: Alert, Normal Affect, Normal Mood - Patient Data Lab Results Last 24 hrs: Laboratory Results - last 24 hr 05/18/18 05/18/18 Range/Units 04:37 04:37 WBC 10.3 (4.5-11.0) K/uL RBC 3.46 (3.30-5.50) M/uL Hgb 11.4 L (12.0-15.0) g/dL Hct 34.7 L (36.0-48.0) % MCV 100 H (80-98) fL MCH 33 H (27-31) pg MCHC 33 (32-36) % Plt Count 514 H (150-400) K/uL Sodium 134 L (140-148) mmol/L Potassium 3.3 L (3.6-5.2) mmol/L Chloride 95 L (100-108) mmol/L Carbon Dioxide 31 (21-32) mmol/L Anion Gap 11.3 (5.0-14.0) mmol/L BUN 5 L (7-18) mg/dL Creatinine 0.6 (0.6-1.0) mg/dL Est Cr Clr Drug Dosing 64.89 mL/min Estimated GFR (MDRD) > 60 (>60) Glucose 151 H (74-106) mg/dL Calcium 7.6 L (8.5-10.1) mg/dL Phosphorus 2.2 L (2.5-4.9) mg/dL Magnesium 1.6 L (1.8-2.4) mg/dL Total Bilirubin 0.5 (0.2-1.0) mg/dL AST 25 (15-37) U/L ALT 24 (12-78) U/L Alkaline Phosphatase 61 (46-116) U/L NT-Pro-B Natriuret Pep 561 H (5-125) pg/mL Total Protein 5.1 L (6.4-8.2) g/dL Albumin 2.1 L (3.4-5.0) g/dL Globulin 3.0 (2.3-3.5) g/dL Albumin/Globulin Ratio 0.7 L (1.2-2.2) Result Diagrams: 05/18/18 04:37 05/18/18 04:37 Lopez Results Last 24 hrs: Microbiology 05/18/18 04:21 Clostridium difficile (PCR) - Final Stool / Feces Positive C. Diff Toxin Problem List Initiated/Reviewed/Updated: Yes Orders Last 24hrs: Active Orders 24 hr Category Date Time Status Admission Status [Patient Status] [ADT] Routine ADT 05/17/18 09:15 Active Ambulate [RC] QID Care 05/17/18 09:50 Active Drain Management [RC] Q12H Care 05/17/18 09:54 Active Up to Chair [RC] QID Care 05/17/18 09:50 Active Vital Signs [RC] Q4H Care 05/17/18 09:50 Active NPO [Nothing Per Oral Diet] [DIET] Diet 05/17/18 Lunch Active Abdomen 2V AP Flat Upright [CR] Routine Exams 05/18/18 04:00 Taken CLOSTRIDIUM DIFFICILE BY PCR [RM] Routine Lab 05/18/18 04:21 Ordered Dextrose 5%-Lactated Ringers 1,000 ml Med 05/17/18 13:00 Active IV ASDIRECTED HYDROmorphone/Normal Saline [Dilaudid DICE TABLE OPERATOR 15 MG in NS Med 05/17/18 09:57 Active 30 ML] 0 mg IV ASDIRECTED PRN Metoclopramide [Reglan] Med 05/17/18 11:00 Active 10 mg IVPUSH Q6H Naloxone [Narcan] Med 05/17/18 10:00 Active 0.1 mg IV ASDIRECTED PRN Ondansetron [Zofran] Med 05/17/18 10:00 Active 4 mg IVPUSH Q4H Pantoprazole [ProTONIX IV] Med 05/17/18 11:00 Active 40 mg IV Q12H Pneumococcal Polyvalent-23 Vac [Pneumovax 23] Med 05/18/18 09:00 Once 0.5 ml IM .ONCE ONE amLODIPine [Norvasc] Med 05/17/18 11:00 Active 10 mg PO DAILY Medication Orders Amlodipine Besylate (Norvasc) 10 mg PO DAILY [facility] Last Admin: 05/17/18 11:08 Dose: Hydromorphone HCl (Dilaudid Histological Illustrator 15 Mg In Ns 30 Ml) 0 mg IV ASDIRECTED PRN; Protocol PRN Reason: DICE TABLE OPERATOR PAIN CONTROL Last Admin: 05/17/18 11:34 Dose: 15 mg Dextrose/Lactated Ringer's (Dextrose 5%-Lactated Ringers) 1,000 mls @ 125 mls/ hr IV ASDIRECTED [facility] Last Admin: 05/18/18 06:12 Dose: 125 mls/hr Infusion: 05/18/18 05:51 Dose: 125 mls/hr Admin: 05/17/18 21:51 Dose: 125 mls/hr Infusion: 05/17/18 21:51 Dose: 125 mls/hr Admin: 05/17/18 13:51 Dose: 125 mls/hr Metoclopramide HCl (Reglan) 10 mg IVPUSH Q6H [facility] Last Admin: 05/18/18 05:10 Dose: 10 mg Admin: 05/17/18 23:24 Dose: 10 mg Admin: 05/17/18 16:51 Dose: 10 mg Admin: 05/17/18 11:10 Dose: 10 mg Naloxone HCl (Narcan) 0.1 mg IV ASDIRECTED PRN PRN Reason: decreased respiratory rate Ondansetron HCl (Zofran) 4 mg IVPUSH Q4H [facility] Last Admin: 05/18/18 06:01 Dose: 4 mg Admin: 05/18/18 02:25 Dose: 4 mg Admin: 05/17/18 21:51 Dose: 4 mg Admin: 05/17/18 17:47 Dose: 4 mg Admin: 05/17/18 13:47 Dose: 4 mg Admin: 05/17/18 11:10 Dose: 4 mg Pantoprazole Sodium (Protonix Iv) 40 mg IV Q12H [facility] Last Admin: 05/17/18 23:24 Dose: 40 mg Admin: 05/17/18 11:10 Dose: 40 mg Pneumococcal Polyvalent Vaccine (Pneumovax 23) 0.5 ml IM .ONCE ONE Stop: 05/18/18 09:01 Assessment/Plan Comment:: Assessment: Status post open total colectomy and total hysterectomy. Admitted for post operative ileus. Plan: 1. Positive for C. Diff 2. Start Vancomycin 200mg po QID 3. CBC/CMP/Mag/Phosphorus in am 4. Abdomen 2V AP flat upright for ileus in am 5. Clear liquid diet without solids or cereal 6. Shower 7. Drain removal LONG drain #2 8. Reevaluate prn or in am
--- NOTE | 2018-05-18 08:54 | CR ---
Abdomen 2V AP Flat Upright CLINICAL HISTORY: Ileus FINDINGS: There is persistent moderate small bowel distention similar to prior study. There are scatt ered air-fluid levels. Patient is status post extensive abdominal surgery. Surgical drains remain in place. IMPRESSION: Persistent small bowel distention with scattered air-fluid levels. This may represent pos top ileus Continued follow-up recommended until resolution
[2018-05-18] MEDS ORDERED: Pneumococcal Polyvalent-23 Vaccine 0.5 ML SDV IM ONE (09:00)
[2018-05-18] MEDS: Vancomycin 250 MG/5 ML ML Oral Solution PO SCH ×3 (09:37→22:14)
[2018-05-18] MEDS: amLODIPine 10 MG Tab PO SCH (09:38)
[2018-05-18] MEDS: Pantoprazole 40 MG Vial IV SCH ×2 (10:11→22:16)
[2018-05-18] MEDS: Magnesium Sulfate/Water 2 GM in Premix Bag 1 BAG IV SCH ×2 (13:25→19:45)
[2018-05-18] MEDS: Potassium Chloride 20 MEQ, Lidocaine 1% 2 ML in Sodium Chloride 0.9% 100 ML IV SCH ×3 (14:14→18:20)
[2018-05-18] MEDS: Ondansetron 4 MG/2 ML SDV IVPUSH PRN (22:01)
[2018-05-19] MEDS: Dextrose 5%-Lactated Ringers 1,000 ML IV SCH ×3 (00:19→17:23)
[2018-05-19] MEDS: Magnesium Sulfate/Water 2 GM in Premix Bag 1 BAG IV SCH ×4 (01:20→20:23)
[2018-05-19] MEDS: Vancomycin 250 MG/5 ML ML Oral Solution PO SCH ×4 (05:31→22:28)
[2018-05-19] MEDS: Metoclopramide 10 MG/2 ML SDV IVPUSH SCH ×4 (05:31→23:54)
[2018-05-19] MEDS ORDERED: Potassium Chloride 20 MEQ, Lidocaine 1% 2 ML in Sodium Chloride 0.9% 100 ML IV SCH (06:30)
--- NOTE | 2018-05-19 08:14 | PCM.PN ---
- General Info Date of Service: 05/19/18 Admission Dx/Problem (Free Text): Admission Diagnosis/Problem Admission Diagnosis/Problem Ileus Subjective Update: Patients vitals are stable with no major problems overnight. She had 5/6 BM throughout the night and was incontinent this am. She had on episode of slight emesis, but the nausea was relived after the episode. She is up, ambulating and tolerating small amounts of liquids. - Review of Systems General: Reports: No Symptoms HEENT: Reports: No Symptoms Pulmonary: Reports: No Symptoms Cardiovascular: Reports: No Symptoms Gastrointestinal: Reports: Abdominal Pain, Decreased Appetite Genitourinary: Reports: No Symptoms Musculoskeletal: Reports: No Symptoms Skin: Reports: No Symptoms Neurological: Reports: No Symptoms Psychiatric: Reports: No Symptoms Systems Review Comment:: Remainder of ROS is negative for any pertinent negatives or positives. - Patient Data Vitals - Most Recent: Last Vital Signs Temp 98.7 F 05/19/18 03:00 Pulse 67 05/19/18 03:00 Resp 16 05/19/18 03:00 BP 132/55 L 05/19/18 03:00 Pulse Ox 93 L 05/19/18 07:28 Weight - Most Recent: 148 lb 6.4 oz I&O - Last 24 Hours: Intake & Output 05/18/18 05/19/18 05/19/18 22:59 06:59 14:59 Intake Total 420 1452 Output Total 25 5 Balance 395 1447 Lab Results Last 24 Hours: Laboratory Results - last 24 hr 05/19/18 05/19/18 Range/Units 04:10 04:10 WBC 10.9 (4.5-11.0) K/uL RBC 3.02 L (3.30-5.50) M/uL Hgb 10.0 L (12.0-15.0) g/dL Hct 30.7 L (36.0-48.0) % MCV 102 H (80-98) fL MCH 33 H (27-31) pg MCHC 33 (32-36) % Plt Count 449 H (150-400) K/uL Sodium 137 L (140-148) mmol/L Potassium 2.9 L* (3.6-5.2) mmol/L Chloride 101 (100-108) mmol/L Carbon Dioxide 31 (21-32) mmol/L Anion Gap 7.9 (5.0-14.0) mmol/L BUN 7 (7-18) mg/dL Creatinine 0.5 L (0.6-1.0) mg/dL Est Cr Clr Drug Dosing 77.96 mL/min Estimated GFR (MDRD) > 60 (>60) Glucose 148 H (74-106) mg/dL Calcium 7.0 L (8.5-10.1) mg/dL Phosphorus 2.5 (2.5-4.9) mg/dL Magnesium 2.8 H D (1.8-2.4) mg/dL Total Bilirubin 0.4 (0.2-1.0) mg/dL AST 16 (15-37) U/L ALT 21 (12-78) U/L Alkaline Phosphatase 55 (46-116) U/L Total Protein 4.3 L (6.4-8.2) g/dL Albumin 1.7 L (3.4-5.0) g/dL Globulin 2.6 (2.3-3.5) g/dL Albumin/Globulin Ratio 0.7 L (1.2-2.2) Lopez Results Last 24 Hours: Microbiology 05/18/18 04:21 Clostridium difficile (PCR) - Final Stool / Feces Positive C. Diff Toxin Med Orders - Current: Current Medications Amlodipine Besylate (Norvasc) 10 mg PO DAILY [facility] Last Admin: 05/18/18 09:38 Dose: Not Given Hydromorphone HCl (Dilaudid Chemistry Technical Officer 15 Mg In Ns 30 Ml) 0 mg IV ASDIRECTED PRN; Protocol PRN Reason: SALES EXEC PAIN CONTROL Last Admin: 05/17/18 11:34 Dose: 15 mg Dextrose/Lactated Ringer's (Dextrose 5%-Lactated Ringers) 1,000 mls @ 125 mls/ hr IV ASDIRECTED DOM Last Admin: 05/19/18 07:40 Dose: 125 mls/hr Magnesium Sulfate 2 gm/ Premix 50 mls @ 25 mls/hr IV Q6H DOM Stop: 05/21/18 09:59 Last Admin: 05/19/18 01:20 Dose: 25 mls/hr Potassium Chloride 20 meq/Lidocaine HCl 2 ml/ Sodium Chloride 112 mls @ 50 mls/ hr IV Q2H [facility] Stop: 05/19/18 14:59 Metoclopramide HCl (Reglan) 10 mg IVPUSH Q6H [facility] Last Admin: 05/19/18 05:31 Dose: 10 mg Naloxone HCl (Narcan) 0.1 mg IV ASDIRECTED PRN PRN Reason: decreased respiratory rate Ondansetron HCl (Zofran) 4 mg IVPUSH Q4H PRN PRN Reason: Nausea Last Admin: 05/18/18 22:01 Dose: 4 mg Pantoprazole Sodium (Protonix Iv) 40 mg IV Q12H [facility] Last Admin: 05/18/18 22:16 Dose: 40 mg Vancomycin HCl (Vancocin 250 Mg/5 Ml Soln) 250 mg PO QID [facility] Last Admin: 05/19/18 05:31 Dose: 250 mg Discontinued Medications Multivitamins/Minerals 10 ml/Chromium/Copper/Manganese/Seleni/Zn 1 ml/ Thiamine HCl 100 mg/ Lactated Ringer's 1,012 mls @ 335 mls/hr IV ONETIME ONE Stop: 05/17/18 14:01 Last Admin: 05/17/18 11:05 Dose: 335 mls/hr Potassium Chloride 20 meq/Lidocaine HCl 2 ml/ Sodium Chloride 112 mls @ 56 mls/ hr IV Q2H [facility] Stop: 05/18/18 18:59 Last Admin: 05/18/18 18:20 Dose: 56 mls/hr Potassium Chloride 20 meq/Lidocaine HCl 2 ml/ Sodium Chloride 112 mls @ 50 mls/ hr IV Q2H [facility] Stop: 05/19/18 12:29 Ondansetron HCl (Zofran) 4 mg IVPUSH Q4H [facility] Last Admin: 05/18/18 09:36 Dose: 4 mg Pneumococcal Polyvalent Vaccine (Pneumovax 23) 0.5 ml IM .ONCE ONE Stop: 05/18/18 09:01 Last Admin: 05/18/18 10:15 Dose: 0.5 ml - Exam General: Alert, Oriented, Cooperative, No Acute Distress HEENT: Pupils Equal, Mucous Membr. Moist/Free Soil Neck: Supple Lungs: Clear to Auscultation, Normal Respiratory Effort Cardiovascular: Regular Rate, Regular Rhythm Extremities: Normal Range of Motion Skin: Warm, Dry, Intact Neurological: No New Focal Deficit Psy/Mental Status: Alert, Normal Affect, Normal Mood - Problem List Review Problem List Initiated/Reviewed/Updated: Yes - Assessment Assessment:: Post operative Ileus. - Plan Plan:: Plan: 1. Positive for C. Diff 2. Continue Vancomycin 200mg po QID 3. KCl 20 meq IV q2h 4. Lab in am 4:00 CBC/CMP/Phosphours 5. Ang Chest Ct 6. Clear liquid diet without cereal 7. May Shower 8. Reevaluate prn or in am
[2018-05-19] MEDS: Potassium Chloride 20 MEQ, Lidocaine 1% 2 ML in Sodium Chloride 0.9% 100 ML IV SCH ×3 (08:34→13:24)
[2018-05-19] MEDS: amLODIPine 10 MG Tab PO SCH ×2 (09:09→09:19)
[2018-05-19] MEDS ORDERED: Sodium Chloride 0.9% 10 ML Syringe FLUSH ONE (09:48)
[2018-05-19] MEDS ORDERED: Iopamidol 755 Mg/ML 100 ML Bottle IV SCH (10:00)
[2018-05-19] MEDS ORDERED: Sodium Chloride 0.9% 100 ML IV SCH (10:00)
--- NOTE | 2018-05-19 13:11 | CT ---
CT angiogram Chest and left axilla CLINICAL HISTORY: Diminished left upper extremity blood pressure TECHNIQUE: Multiple axial images were obtained through the upper chest without and with the IV infusi on of iodinated contrast. From these images sagittal, coronal, and 3D reconstructions of the aortic a rch and proximal brachiocephalic vessels were obtained and viewed on a dedicated and independent work station. NASCET criteria is used. Auto dosage reduction and iterative reconstruction techniques emplo yed. FINDINGS: There is significant calcific plaque in the aortic arch. There is also plaque in the innomi becka artery and right subclavian artery as well as the proximal right the common carotid artery. Ther e is no significant focal stenosis. Right vertebral artery is patent. There is plaque at the origin of the left the common carotid artery. No significant stenosis is ident ified. There is severe plaque at the origin of the left subclavian artery. Extending into the proximal subcl thompson artery causing severe left subclavian artery stenosis approaching 90%. The left vertebral arter y is occluded. The the axillary artery is normal contour and the left the. The visualized proximal br achial artery is patent without significant stenosis There is calcific plaque in both carotid bifurcations. Mild left ICA stenosis is suspected. Bifurcati on evaluation is less than optimal. IMPRESSION: Severe to critical stenosis of the proximal left the subclavian artery Occlusion of the left vertebral artery Moderate diffuse plaque in the arch and brachiocephalic vessels as well as the both carotid bifurcati ons
[2018-05-19] MEDS: Pantoprazole 40 MG Vial IV SCH ×2 (13:26→23:53)
[2018-05-19] MEDS: Ondansetron 4 MG/2 ML SDV IVPUSH SCH (13:26)
[2018-05-20] MEDS: Dextrose 5%-Lactated Ringers 1,000 ML IV SCH ×3 (00:02→19:14)
[2018-05-20] MEDS: Magnesium Sulfate/Water 2 GM in Premix Bag 1 BAG IV SCH ×4 (02:23→20:34)
[2018-05-20] MEDS: Metoclopramide 10 MG/2 ML SDV IVPUSH SCH ×4 (04:35→23:11)
[2018-05-20] MEDS: Vancomycin 250 MG/5 ML ML Oral Solution PO SCH ×4 (05:39→21:36)
[2018-05-20] MEDS: Potassium Phosphates 20 MMOLE in Sodium Chloride 0.9% 250 ML IV SCH ×3 (10:06→16:46)
[2018-05-20] MEDS: Lactobacillus Rhamnosus GG (Probiotic) Cap PO SCH ×2 (10:11→21:35)
[2018-05-20] MEDS: Pantoprazole 40 MG Vial IV SCH ×2 (11:23→23:11)
[2018-05-20] MEDS: amLODIPine 10 MG Tab PO SCH (11:25)
[2018-05-20] MEDS: Ondansetron 4 MG/2 ML SDV IVPUSH PRN (19:06)
[2018-05-21] MEDS: Magnesium Sulfate/Water 2 GM in Premix Bag 1 BAG IV SCH ×2 (02:08→07:40)
[2018-05-21] MEDS: Dextrose 5%-Lactated Ringers 1,000 ML IV SCH ×3 (04:07→20:04)
[2018-05-21] MEDS: Metoclopramide 10 MG/2 ML SDV IVPUSH SCH ×4 (05:36→21:59)
[2018-05-21] MEDS: Vancomycin 250 MG/5 ML ML Oral Solution PO SCH ×4 (05:37→21:59)
--- NOTE | 2018-05-21 08:19 | PN ---
DATE OF SERVICE: 05/21/2018 SUBJECTIVE: Merle had one episode of right lower quadrant abdominal pain, which was an 8/10. She pushed her Dilaudid CARDIOLOGY NURSE and later was up and ambulated a short distance. She started, around 5 a.m., passing increased amount of flatus. She also has a lot of burping. One emesis of 50 mL. She is scheduled Reglan and gets Zofran p.r.n. She is not sure if her nausea is related to the vancomycin. Oral intake, due to nausea and not feeling hungry, she did get 440 mL in, which was better than the day before. LONG drain, midline, put out about 5 mL. Oral intake, she had 25% of breakfast, 25% of lunch, and was not able to have any supper. Total of 3 bowel movements. Urine output recorded as 500 mL plus urine with urination that was not able to be measured with her liquid stools. Merle states she does feel better. She is up sitting in a chair. LAB TESTS: White count did go up to 17.8 and yesterday was 17,000. Hemoglobin up a little bit to 11. Potassium was 4 after receiving 60 mEq yesterday. REVIEW OF SYSTEMS: Remainder of review of systems negative for any pertinent positives and negatives. OBJECTIVE: GENERAL: Merle Valiente is a pleasant 72-year-old female. She is alert and orientated, sitting up in the chair as stated. VITAL SIGNS: TPR is 98.7, 87, 16, and blood pressure is 130/56. HEENT: Negative. NECK: Supple. HEART: Regular rate and rhythm. LUNGS: Clear. ABDOMEN: Soft and very minimally tender to palpate. [place] intact. LONG drain has not been emptied. There is an increased amount of air in it at the time of rounds. Abdominal binder is not on right now, but she is sitting in the chair. EXTREMITIES: Reveal no peripheral edema. ASSESSMENT: 1. Clostridium difficile. 2. Postoperative ileus. PLAN: 1. Discontinue CARDIOLOGY NURSE. 2. Discontinue continuous pulse ox. 3. Dilaudid 2 mg 1 to 2 every 4 hours p.r.n. pain. 4. Check UA, UC. 5. Check chest x-ray PA and lateral. 6. Check CBC with differential at 1600 hours. Call with results. 7. Check CBC, mag, and phos in a.m. 8. Recommend taking vancomycin with food. 9. Good pulmonary toilet. 10.We will evaluate p.r.n. or in a.m. Norma Judd PA-C /[id number]
[2018-05-21] MEDS: Lactobacillus Rhamnosus GG (Probiotic) Cap PO SCH ×2 (10:17→20:07)
[2018-05-21] MEDS: Pantoprazole 40 MG Tab.CR PO SCH ×2 (10:17→17:11)
[2018-05-21] MEDS: amLODIPine 10 MG Tab PO SCH (10:18)
[2018-05-22] MEDS: Dextrose 5%-Lactated Ringers 1,000 ML IV SCH ×3 (03:52→19:03)
[2018-05-22] MEDS: Metoclopramide 10 MG/2 ML SDV IVPUSH SCH ×4 (05:13→23:52)
[2018-05-22] MEDS: Vancomycin 250 MG/5 ML ML Oral Solution PO SCH ×4 (05:13→21:52)
[2018-05-22] MEDS: HYDROmorphone 2 MG Tab PO PRN ×2 (05:26→10:13)
[2018-05-22] MEDS ORDERED: POTASSIUM PHOSPHATES IV SCH (07:00)
[2018-05-22] MEDS ORDERED: SODIUM CHLORIDE IV SCH (07:00)
[2018-05-22] MEDS: Pantoprazole 40 MG Tab.CR PO SCH ×2 (07:39→17:44)
--- NOTE | 2018-05-22 07:42 | PN ---
DATE OF SERVICE: 05/22/2018 SUBJECTIVE: Merle had oral intake of 800. Potassium this morning is 3. LONG drain put out 5 mL of a light pink serosanguineous drainage. She had 10 loose stools yesterday. White count decreased from 17.8 to 14.9. No fever or chills. Vital signs stable. REVIEW OF SYSTEMS: CARDIAC: No chest pain or shortness of breath. LUNGS: No cough. GI: As above. : No UTI signs or symptoms. EXTREMITIES: No joint pain or swelling. SKIN: Without rash. Remainder of review of systems negative for any pertinent positives and negatives. OBJECTIVE: GENERAL: Merle Valiente is a 72-year-old female. She is alert and orientated, lying in bed. VITAL SIGNS: TPR is 98.8, 70, 16, and blood pressure 106/54. HEENT: Negative. NECK: Supple. HEART: Regular rate and rhythm. LUNGS: Clear. ABDOMEN: [place] intact. LONG drain is inflated with air. There is a scant amount of pink serosanguineous drainage. Abdominal binder has been on. EXTREMITIES: Without peripheral edema. ASSESSMENT: 1. Clostridium difficile. 2. Postoperative ileus. 3. [id number] stenosis of the proximal left subclavian artery per CT angiogram, chest and left axilla. Severe plaque of origin of the left subclavian artery extends into the proximal subclavian artery causing severe left subclavian artery stenosis approaching 90%. PLAN: 1. Increase diet to low-residue diet. 2. K-Phos 75 millimoles IV today. 3. Discontinue LONG drain. 4. Discontinue mars. Apply tincture of benzoin and Steri-Strips. 5. Fiber wafers 3 b.i.d. 6. Check CBC, CMP, and phos in a.m. 7. Good pulmonary toilet. 8. We will evaluate p.r.n. or in a.m. Norma Judd PA-C /[id number]
[2018-05-22] MEDS: amLODIPine 10 MG Tab PO SCH (09:00)
[2018-05-22] MEDS: Inulin 1.5 GM Chewable Tab PO SCH ×2 (09:00→21:53)
[2018-05-22] MEDS ORDERED: Inulin 1.5 GM Chewable Tab PO SCH (09:00)
[2018-05-22] MEDS: Lactobacillus Rhamnosus GG (Probiotic) Cap PO SCH ×2 (09:00→21:53)
--- NOTE | 2018-05-22 09:33 | PN ---
DATE OF SERVICE: 05/20/2018 SUBJECTIVE: Merle had 7 smaller bowel movements. She did have one emesis of 240 mL, remains to be on a clear liquid diet, but states she is getting hungry. Denies abdominal pain this morning. LONG drain put out 5 mL of a clear red drainage. Oral intake was 120, emesis of 240 as stated, and output 2777. LABORATORY DATA: Lab values today: WBC went up to 17, hemoglobin 10.5, sodium 136, potassium 3.2, calcium is 6.9, and albumin is 1.9. Pharmacy consult corrected calcium with the albumin ratio is 8.8. REVIEW OF SYSTEMS: Remainder of review of systems negative for any pertinent positives and negatives. OBJECTIVE: GENERAL: Merle Valiente is a pleasant 72-year-old female, color flushed. VITAL SIGNS: TPR 97, 99, 16; blood pressure is 116/52. HEENT: Negative. NECK: Supple. HEART: Regular rate and rhythm. LUNGS: Clear. ABDOMEN: Her incisions look good. Steffany intact. One LONG drain in midline as above. Abdomen is soft, less distended. EXTREMITIES: Without peripheral edema. ASSESSMENT: 1. Clostridium difficile. 2. Postop ileus. 3. Low potassium and phosphorus. PLAN: 1. K-Phos 60 millimoles IV today. 2. Check CBC, CMP, and phos in a.m. 3. Probiotics 2 b.i.d. 4. Diet is advanced to a full-liquid diet. Daughter Sarah Anton was called in regard to angiogram results. Date of angiogram, 05/19/2018. IMPRESSION: 1. 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 The amount of occlusion and plaque is approaching 90%. In regard to her CT angiogram of chest and left axilla, we will refer to her primary care provider for treatment, Dr. Minh Lao, nursing staff to call him with results. 2. We will evaluate p.r.n. or in a.m. Norma Judd PA-C /[id number]
[2018-05-22] MEDS: Potassium Phosphates 25 MMOLE in Sodium Chloride 0.9% 500 ML IV SCH ×3 (10:19→19:00)
[2018-05-23] MEDS: Metoclopramide 10 MG/2 ML SDV IVPUSH SCH (04:55)
[2018-05-23] MEDS: Dextrose 5%-Lactated Ringers 1,000 ML IV SCH (04:56)
[2018-05-23] MEDS: Vancomycin 250 MG/5 ML ML Oral Solution PO SCH ×4 (05:00→22:35)
[2018-05-23] MEDS ORDERED: Dextrose 5%-Lactated Ringers 1,000 ML IV SCH (09:00)
[2018-05-23] MEDS: amLODIPine 10 MG Tab PO SCH (09:44)
[2018-05-23] MEDS: Inulin 1.5 GM Chewable Tab PO SCH ×2 (09:45→22:36)
[2018-05-23] MEDS: Pantoprazole 40 MG Tab.CR PO SCH (09:45)
[2018-05-23] MEDS: Metoclopramide 10 MG Tab PO SCH ×3 (09:45→22:36)
[2018-05-23] MEDS: Lactobacillus Rhamnosus GG (Probiotic) Cap PO SCH ×2 (09:45→22:35)
[2018-05-23] MEDS: Loperamide 2 MG Cap PO SCH ×3 (09:45→22:36)
--- NOTE | 2018-05-23 12:20 | PCM.PN ---
- General Info Date of Service: 05/23/18 Admission Dx/Problem (Free Text): Admission Diagnosis/Problem Admission Diagnosis/Problem Ileus Subjective Update: Patient had total colectomy and hyerterectomy on 05/12/2016 and was readmitted for a post operative ileus. Patients vitals are stable with no major problems overnight. She had 11-15 BM throughout the night. Pain is controlled on current regimen. She is up, ambulating and will be increasing diet today. It was discussed to allow her to eat anything she wants as long as she is increasing intake. We discussed how she should avoid fresh/raw vegetables. Functional Status: Reports: Pain Controlled, Tolerating Diet, Ambulating, Urinating, Incentive Spirometry - Review of Systems General: Reports: No Symptoms HEENT: Reports: No Symptoms Pulmonary: Reports: No Symptoms Cardiovascular: Reports: No Symptoms Gastrointestinal: Reports: Decreased Appetite Genitourinary: Reports: No Symptoms Musculoskeletal: Reports: No Symptoms Skin: Reports: No Symptoms Neurological: Reports: No Symptoms Psychiatric: Reports: No Symptoms Systems Review Comment:: Remainder of ROS is negative for any pertinent negatives or positives. - Patient Data Vitals - Most Recent: Last Vital Signs Temp 98.2 F 05/23/18 10:37 Pulse 89 05/23/18 10:37 Resp 18 05/23/18 10:37 BP 130/62 05/23/18 10:37 Pulse Ox 97 05/23/18 10:37 Weight - Most Recent: 148 lb 6.4 oz I&O - Last 24 Hours: Intake & Output 05/22/18 05/23/18 05/23/18 22:59 06:59 14:59 Intake Total 2320 1351 476 Output Total 300 800 Balance 2019 551 476 Lab Results Last 24 Hours: Laboratory Results - last 24 hr 05/23/18 Range/Units 06:37 Urine Color Yellow Urine Appearance Clear Urine pH 8.0 (4.5-8.0) Ur Specific [place] 1.010 (1.008-1.030) Urine Protein Negative (NEGATIVE) mg/dL Urine Glucose (UA) Normal (NEGATIVE) mg/dL Urine Ketones Negative (NEGATIVE) mg/dL Urine Occult Blood Negative (NEGATIVE) Urine Nitrite Negative (NEGATIVE) Urine Bilirubin Negative (NEGATIVE) Urine Urobilinogen Normal (NORMAL) mg/dL Ur Leukocyte Esterase Negative (NEGATIVE) Urine RBC Not seen (0-5) Urine WBC 0-5 (0-5) Ur Epithelial Cells Not seen Amorphous Sediment Rare Urine Bacteria Rare Urine Mucus Not seen Med Orders - Current: Current Medications Amlodipine Besylate (Norvasc) 10 mg PO DAILY [facility] Last Admin: 05/23/18 09:44 Dose: 10 mg Hydromorphone HCl (Dilaudid) 2 - 4 mg PO Q4H PRN PRN Reason: Pain Last Admin: 05/22/18 10:13 Dose: 2 mg Sodium Chloride (Normal Saline) 100 mls @ 3 mls/sec IV ASDIRECTED DOM Dextrose/Lactated Ringer's (Dextrose 5%-Lactated Ringers) 1,000 mls @ 60 mls/ hr IV ASDIRECTED [facility] Inulin (Fiber Choice) 4.5 gm PO BID [facility] Last Admin: 05/23/18 09:45 Dose: 4.5 gm Lactobacillus Rhamnosus (Culturelle) 2 cap PO BID [facility] Last Admin: 05/23/18 09:45 Dose: 2 cap Loperamide HCl (Imodium) 2 mg PO Q6H [facility] Last Admin: 05/23/18 09:45 Dose: 2 mg Metoclopramide HCl (Reglan) 10 mg PO Q6H [facility] Last Admin: 05/23/18 09:45 Dose: 10 mg Pantoprazole Sodium (Protonix) 40 mg PO BIDAC [facility] Last Admin: 05/23/18 09:45 Dose: 40 mg Vancomycin HCl (Vancocin 250 Mg/5 Ml Soln) 250 mg PO QID [facility] Last Admin: 05/23/18 09:45 Dose: 250 mg Discontinued Medications Amlodipine Besylate (Norvasc) 10 mg PO DAILY [facility] Last Admin: 05/19/18 09:19 Dose: Not Given Hydromorphone HCl (Dilaudid [facility] 15 Mg In Ns 30 Ml) 0 mg IV ASDIRECTED PRN; Protocol PRN Reason: [employer] PAIN CONTROL Last Admin: 05/17/18 11:34 Dose: 15 mg Multivitamins/Minerals 10 ml/Chromium/Copper/Manganese/Seleni/Zn 1 ml/ Thiamine HCl 100 mg/ Lactated Ringer's 1,012 mls @ 335 mls/hr IV ONETIME ONE Stop: 05/17/18 14:01 Last Admin: 05/17/18 11:05 Dose: 335 mls/hr Dextrose/Lactated Ringer's (Dextrose 5%-Lactated Ringers) 1,000 mls @ 125 mls/ hr IV ASDIRECTED DOM Last Admin: 05/23/18 04:56 Dose: 125 mls/hr Magnesium Sulfate 2 gm/ Premix 50 mls @ 25 mls/hr IV Q6H [facility] Stop: 05/21/18 09:59 Last Admin: 05/21/18 07:40 Dose: 25 mls/hr Potassium Chloride 20 meq/Lidocaine HCl 2 ml/ Sodium Chloride 112 mls @ 56 mls/ hr IV Q2H [facility] Stop: 05/18/18 18:59 Last Admin: 05/18/18 18:20 Dose: 56 mls/hr Potassium Chloride 20 meq/Lidocaine HCl 2 ml/ Sodium Chloride 112 mls @ 50 mls/ hr IV Q2H [facility] Stop: 05/19/18 12:29 Last Admin: 05/19/18 08:42 Dose: Not Given Potassium Chloride 20 meq/Lidocaine HCl 2 ml/ Sodium Chloride 112 mls @ 50 mls/ hr IV Q2H [facility] Stop: 05/19/18 14:59 Last Admin: 05/19/18 13:24 Dose: 50 mls/hr Potassium Phosphate 20 mmole/ (Sodium Chloride) 256.6667 mls @ 86 mls/hr IV Q3H [facility] Stop: 05/20/18 17:59 Last Admin: 05/20/18 16:46 Dose: 86 mls/hr Potassium Phosphate 25 mmole/ (Sodium Chloride) 508.3333 mls @ 127 mls/hr IV Q4H [facility] Stop: 05/22/18 21:29 Last Admin: 05/22/18 19:00 Dose: 127 mls/hr Iopamidol (Isovue-370 (76%)) 100 ml IV . DIRECTED [facility] Metoclopramide HCl (Reglan) 10 mg IVPUSH Q6H [facility] Last Admin: 05/23/18 04:55 Dose: 10 mg Naloxone HCl (Narcan) 0.1 mg IV ASDIRECTED PRN PRN Reason: decreased respiratory rate Ondansetron HCl (Zofran) 4 mg IVPUSH Q4H [facility] Last Admin: 05/19/18 13:26 Dose: 4 mg Ondansetron HCl (Zofran) 4 mg IVPUSH Q4H PRN PRN Reason: Nausea Last Admin: 05/20/18 19:06 Dose: 4 mg Pantoprazole Sodium (Protonix Iv) 40 mg IV Q12H DOM Last Admin: 05/20/18 23:11 Dose: 40 mg Pneumococcal Polyvalent Vaccine (Pneumovax 23) 0.5 ml IM .ONCE ONE Stop: 05/18/18 09:01 Last Admin: 05/18/18 10:15 Dose: 0.5 ml Sodium Chloride (Saline Flush) 10 ml FLUSH ONETIME ONE Stop: 05/19/18 09:49 Last Admin: 05/19/18 13:23 Dose: 10 ml - Exam General: Alert, Oriented, Cooperative, No Acute Distress HEENT: Pupils Equal, Mucous Membr. Moist/[place] Neck: Supple Lungs: Clear to Auscultation, Normal Respiratory Effort Cardiovascular: Regular Rate, Regular Rhythm Extremities: Normal Range of Motion Skin: Warm, Dry, Intact Neurological: No New Focal Deficit Psy/Mental Status: Alert, Normal Affect, Normal Mood - Problem List Review Problem List Initiated/Reviewed/Updated: Yes - Assessment Assessment:: Post operative Ileus. - Plan Plan:: Plan: 1. Positive for C. Diff 2. Continue Vancomycin 200mg po QID 3. May Shower 4. Discontinue IV Metoclopramide 5. Start Metoclopramide 10mg po q6h prn for nausea 6. Increase diet to full diet 8. U/A with microscopic clean catch 9. Dextrose 5% 1,00 ml IV 60mls/hr 10. Reevaluate prn or in the am
[2018-05-24] MEDS: Loperamide 2 MG Cap PO SCH ×4 (03:12→21:14)
[2018-05-24] MEDS: Metoclopramide 10 MG Tab PO SCH ×4 (03:12→21:13)
[2018-05-24] MEDS: Vancomycin 250 MG/5 ML ML Oral Solution PO SCH ×4 (06:10→21:14)
[2018-05-24] MEDS: Inulin 1.5 GM Chewable Tab PO SCH ×2 (08:20→21:13)
[2018-05-24] MEDS: amLODIPine 10 MG Tab PO SCH (08:22)
[2018-05-24] MEDS: Lactobacillus Rhamnosus GG (Probiotic) Cap PO SCH ×2 (08:22→21:12)
--- NOTE | 2018-05-24 10:09 | PN ---
DATE OF SERVICE: 05/24/2018 SUBJECTIVE: Merle reports her pain is controlled. She has had a temp max of 99.6. Oral intake improved to 2016. She has had 7 small stools. She ate 100% of breakfast, 60% of lunch, and 100% of dinner. Pain has been controlled. She does have a small amount of drainage from her incision, pink and serosanguineous. REVIEW OF SYSTEMS: Remainder of review of systems negative for any pertinent positives and negatives. OBJECTIVE: GENERAL: Merle is a pleasant 72-year-old female. She is alert and orientated. VITAL SIGNS: TPR is 98.4, 76, 16, and blood pressure 116/56. HEENT: Negative. NECK: Supple. HEART: Regular rate and rhythm. LUNGS: Clear. ABDOMEN: Rich Sanchez MD, opened her incision at bedside and put a 4x4 packing with ABDs and abdominal binder. EXTREMITIES: Without peripheral edema. ASSESSMENT: 1. Clostridium difficile. 2. Postoperative ileus. 3. [id number] stenosis of the proximal left subclavian artery, per CT angiogram, chest and left axilla, severe plaque at the origin, at the left subclavian artery, extends into the proximal subclavian artery causing severe left subclavian artery stenosis approaching 90%. 4. Open abdominal wound. PLAN: 1. Teach the patient and family how to pack and dress wound b.i.d. of open abdominal incision at home. 2. Plan discharge in a.m. with Home Health care. 3. We will evaluate p.r.n. or in a.m. Norma Judd PA-C /[id number]
[2018-05-24] MEDS: HYDROmorphone 2 MG Tab PO PRN (13:12)
[2018-05-25] MEDS: Loperamide 2 MG Cap PO SCH ×2 (03:33→09:00)
[2018-05-25] MEDS: Metoclopramide 10 MG Tab PO SCH ×2 (03:33→09:01)
[2018-05-25] MEDS: Vancomycin 250 MG/5 ML ML Oral Solution PO SCH (05:01)
[2018-05-25] MEDS: Inulin 1.5 GM Chewable Tab PO SCH (08:57)
[2018-05-25] MEDS: amLODIPine 10 MG Tab PO SCH (08:58)
[2018-05-25] MEDS: Lactobacillus Rhamnosus GG (Probiotic) Cap PO SCH (08:59)
--- NOTE | 2018-05-25 09:35 | DISCH ---
ADMISSION DIAGNOSES: 1. Nausea and vomiting. 2. Dehydration. 3. Status post right colectomy and total abdominal hysterectomy on 05/12/2018. 4. Hypertension. 5. Osteoarthritis. DISCHARGE DIAGNOSES: 1. Clostridium difficile. 2. Postoperative ileus, resolved. HISTORY: Merle Valiente is a 72-year-old female. She had a right colectomy and total abdominal hysterectomy on 05/12/2018. She was discharged from the hospital. After discharge, she developed nausea, vomiting, and diarrhea. She presented to the ER on 05/17/2018 and was admitted to the hospital as inpatient for postoperative ileus. Stool culture was positive for C. difficile. She was started on IV vancomycin. Diet, n.p.o. She received IV fluids. Nausea was treated with Zofran and Reglan. On 05/20/2018, her K-Phos was replaced. She was started on probiotic. Her diet was increased to a full liquid diet. On 05/21/2018, her SWITCH TENDER was discontinued, and she was started on oral pain medication. Her white count did get up to 17,000. She did have a negative chest x-ray. On 05/22/2018, oral intake started to increase. She continued to have 10 to 12 stools. She received K-Phos 75 millimoles. LONG drain was discontinued. Her mars were removed. She was started on fiber wafers and Imodium. On 05/23/2018, she continued to progress with good oral intake. Reglan was changed to oral. Diet was increased to a regular diet, and she tolerated that well. On 05/24/2018, she had some drainage from her incision, and this was opened by Rich Sanchez MD, at bedside, and she had a clear serosanguineous drainage. This was packed at bedside. On 05/25/2018, DICTATION ENDS ABRUPTLY HERE, NEEDS TO BE COMPLETED
--- NOTE | 2018-05-25 13:02 | DISCH ---
ADMISSION DIAGNOSES: 1. Nausea and vomiting. 2. Diarrhea. 3. Status post right colectomy and total abdominal hysterectomy on 05/12/2018. DISCHARGE DIAGNOSES: 1. Clostridium difficile. 2. Seroma incision/open abdominal incision. HISTORY: Merle Valiente had a right total colectomy and total abdominal hysterectomy on 05/12/2018. She was discharged without any complications. She presented back to the emergency department, [facility], on 05/17/2018 with nausea, vomiting, and diarrhea. She denied any other symptoms. HOSPITAL COURSE: She was admitted to the hospital and worked up for C. difficile. On 05/19/2018, she remained to have 5 to 6 bowel movements, was n.p.o., and was quite weak. She was started on vancomycin and potassium was replaced. Her blood pressures varied greatly between the right and the left arm, and a CT angiogram was ordered. On 05/20/2018, she continued to have bowel movements. She did have a large emesis. Her potassium and phosphorus were low, so these were replaced. She was started on probiotics, and diet was advanced to full liquid diet. On 05/21/2018, she had one episode of right lower quadrant pain. She did use her Dilaudid SIGHTER. She felt like the vancomycin caused the nausea and emesis, so was recommended to give the Reglan in correlation with her vancomycin. On 05/22/2018, her oral intake increased to 800. Her potassium was 3. She continued to have several stools. A CT angiogram of the chest and left axilla was done, that showed severe-to- critical stenosis of the proximal left subclavian artery and severe plaque of origin at the left subclavian artery, extends into the proximal subclavian artery causing severe left subclavian artery stenosis approaching 90%. Dr. Minh Lao was consulted, and he will be referring her to Cardiology. On 05/23/2018, her diet increased. She did have 11 to 15 stools in the past 24 hours and was started on Imodium, continued with the vancomycin. Diet was increased to a regular diet. On 05/24/2018, midline abdominal incision was draining a clear pink serosanguineous drainage. Dr. Sanchez opened the incision at bedside. It will be packed twice a day during the hospitalization and when she goes home. On 05/25/2018, Merle's vital signs were stable, she was ambulating independently, oral intake and output were adequate, and she was able to be discharged to home without any complications. REVIEW OF SYSTEMS: HEENT: Negative. NECK: Negative. CHEST: No chest pain, shortness of breath, fast or irregular heartbeats. LUNGS: No cough. ABDOMEN: As above. Pain controlled. Stools, 2 in the past 24 hours. Incision is open, packed with 4x4s, ABD placed on top with abdominal binder. EXTREMITIES: Denies any joint pain or swelling. NEURO: No headaches, dizziness, or loss of coordination. PSYCHIATRIC: Negative. Remainder of review of systems negative for any pertinent positives and negatives PHYSICAL EXAMINATION: GENERAL: Merle Valiente is a 72-year-old female. VITAL SIGNS: Height 5 feet 1 inch. Weight is 148 pounds. Vital signs 98.4, 88, 16, and blood pressure 111/61. HEENT: Negative. NECK: Supple. HEART: Regular rate and rhythm. LUNGS: Clear. ABDOMEN: Incision is packed with 4x4s. Dressings dry and intact. Abdominal binder is on. EXTREMITIES: Without peripheral edema. DISPOSITION: Discharged to home. CONDITION: Stable and improving. FOLLOWUP: Followup appointment with Norma Judd PA-C, on 06/01/2018 at 10:30 a.m. DISCHARGE MEDICATIONS: New Prescriptions: 1. Fiber Choice one twice daily, chewable. 2. Culturelle 2 tablets oral twice daily. 3. Imodium 2 mg oral q.6 hours or before meals. 4. Vancomycin 250 mg oral q.6 hours for 1 week. Continue: 1. Tylenol Extra Strength 1000 mg q.6 hours. 2. Hydrochlorothiazide 12.5 mg oral daily. 3. Lisinopril 40 mg oral daily. 4. Amlodipine 5 mg oral daily. DISCHARGE DIET: Usual diet as tolerated. Drink 8 to 10 glasses of water a day. ACTIVITY: No lifting over 10 pounds for 4 weeks[address]riving, do not drive while on pain medication. Shower/bathing, may shower. DISCHARGE INSTRUCTIONS: Notify provider if any fever, nausea, or vomiting. Keep site clean and dry. Pack and change open incision twice a day as directed. Wear abdominal binder for 4 weeks and then as tolerated or until incision is closed.
== END 2018-05-25 10:30 | disposition home health service (06) | DRG 372 ==
LOC: JP.2SS 09:32
PROVIDERS: ADMIT Surgery; ATTEND Surgery
DX: A04.72 Enterocolitis due to Clostridium difficile, not specified as recurrent (principal); L76.34 Postprocedural seroma of skin and subcutaneous tissue following other procedure; I77.1 Stricture of artery; Z23 Encounter for immunization; I10 Essential (primary) hypertension; E87.6 Hypokalemia; E83.39 Other disorders of phosphorus metabolism; Z87.891 Personal history of nicotine dependence; M19.90 Unspecified osteoarthritis, unspecified site; H54.7 Unspecified visual loss; Z90.49 Acquired absence of other specified parts of digestive tract; Z90.710 Acquired absence of both cervix and uterus; Z91.030 Bee allergy status; Z88.8 Allergy status to other drugs, medicaments and biological substances; Z90.79 Acquired absence of other genital organ(s); Z90.722 Acquired absence of ovaries, bilateral; I70.8 Atherosclerosis of other arteries
CPT/HCPCS: 36415; 71046; 71275; 71275-26; 74019; 74019-26; 80053; 81001; 83735; 83880; 84100; 85025; 85027; 87493; 90732; 94762; A9270-GY; C9113; G0009; J1170; J2405; J2765; J3411; J3475; J3480; J3490; J7030; J7040; J7042; J7050; J7120

== ENCOUNTER 2018-06-06 15:49 | Inpatient (IN) | payer MEDICARE, BC ==
[2018-06-06] MEDS ORDERED: Sodium Chloride 0.9% 1,000 ML IV SCH (16:30)
--- NOTE | 2018-06-06 16:30 | EDM.PDOC ---
ED HPI GENERAL MEDICAL PROBLEM - General Chief Complaint: General Stated Complaint: FEVER, WEAKNESS Time Seen by Provider: 06/06/18 16:20 Source of Information: Reports: Patient, Family History Limitations: Reports: No Limitations - History of Present Illness INITIAL COMMENTS - FREE TEXT/NARRATIVE: 72-year-old female who has had ongoing complications after a surgery within the last month, was hospitalized postoperatively for ileus several weeks ago. Despite improving and going home, she has home healthcare checking on her and today they felt she was getting weaker, running a low-grade fever and recommended she go in. The patient's chief complaint is she just can't eat, every time she tries to eat or drink anything she has a globus sensation or pain in her upper chest and very early satiety. She does not complain of a lot of abdominal pain. She just feels like she is becoming weaker and cannot care for herself. On arrival she had a blood pressure of only 69/43 but she was not tachycardic, she was alert and did not appear to be hypotensive physically. Her color was reasonably good. She had no other acute complaints other than profound weakness. Onset: Gradual Duration: Week(s): (Symptoms have been ongoing for weeks) Severity: Moderate Associated Symptoms: Reports: Fever/Chills, Loss of Appetite, Malaise, Nausea/ Vomiting, Weakness. Denies: Shortness of Breath Abdominal Pain Score (Numeric/FACES): 4 - Related Data Allergies Allergy/AdvReac Type Severity Reaction Status Date / Time venom-honey bee Allergy Severe Anaphylactic Verified 05/16/18 07:54 [bee venom (honey bee)] Shock lovastatin Allergy Cannot Verified 05/17/18 11:00 Remember Home Meds: Home Meds Hydrochlorothiazide 12.5 mg PO DAILY 11/19/14 [History] Lisinopril 40 mg PO DAILY 11/19/14 [History] amLODIPine Besylate [Amlodipine Besylate] 5 mg PO DAILY 11/19/14 [History] Acetaminophen [Tylenol Extra Strength] 1,000 mg PO Q6H tablet 05/15/18 [Rx] Inulin [Fiber Choice] 4.5 gm PO BID tab.chew 05/25/18 [Rx] Lactobacillus Rhamnosus GG [Culturelle] 2 cap PO BID cap 05/25/18 [Rx] Loperamide [Imodium] 2 mg PO Q6H cap 05/25/18 [Rx] Magnesium Oxide 400 mg PO DAILY #100 tab 06/09/18 [Rx] Pantoprazole Sodium [Protonix] 40 mg PO BID #60 tablet. 06/09/18 [Rx] Past Medical History HEENT History: Reports: Impaired Vision Other HEENT History: wears glasses Cardiovascular History: Reports: Hypertension Gastrointestinal History: Reports: Chronic Constipation, Chronic Diarrhea, Colon Polyp, Fecal Incontinence Other Gastrointestinal History: The chronic diarrhea and constipation was going on for 3-4 months prior to surgery. Patient states it was always one or the other never a soft formed bowel movement. DIRECTOR [employer]COLOGY History: Reports: Other DIRECTOR [employer]COL[employer] History: removal of ovaries and uterus. Musculoskeletal History: Reports: Arthritis Neurological History: Reports: Concussion Hematologic History: Reports: Anemia Dermatologic History: Reports: Eczema - Infectious Disease History Infectious Disease History: Reports: Chicken Pox, Measles, Mumps - Past Surgical History HEENT Surgical History: Reports: Cataract Surgery, Other (See Below) Other HEENT Surgeries/Procedures: wisdom teeth GI Surgical History: Reports: Colon, Colonoscopy, Hernia, Abdominal, Hernia, Inguinal, Polypectomy, Small Bowel Female Surgical History: Reports: Hysterectomy, Oophorectomy Neurological Surgical History: Reports: Other (See Below) Other Neurological Surgeries/Procedures: coccyx removed due to a "growth" Musculoskeletal Surgical History: Reports: Other (See Below) Other Musculoskeletal Surgeries/Procedures:: Torn meniscus on right knee. Surgery for the wrist in 2000. Broke both left ulna and radius. Had reconstructive surgery in [place]. Social & Family History - Family History Family Medical History: Noncontributory Other Cardiac Family History: Denies family history of CT, atherosclosis, HF. Other GI Family History: Mom had colon cancer. Brother passed had gastric cancer and a cancerous neck mass diagnosed in his 60s. Dad had gastric cancer. Brother 24 of stomach cancer. Denies diverticulitis and Chrons disease. Neurological: Reports: Seizure Endocrine/Metabolic: Reports: Hyperthyroidism Oncologic: Reports: Breast, Colon, Other (See Below) Other Oncologic Family History: stomach - Tobacco Use Smoking Status *Q: Never Smoker - Caffeine Use Caffeine Use: Reports: Coffee Caffeine Use Comment: about 1 cup per day - Recreational Drug Use Recreational Drug Use: No - Living Situation & Occupation Living situation: Reports: (Living at home alone. 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 Denies: Chest Pain Endocrine: Reports: Fatigue (Constant) GI/Abdominal: Reports: Diarrhea (Stools have been loose the last 2 days, no blood in the stool), Nausea. Denies: Abdominal Pain, Vomiting : Denies: Dysuria Skin: Reports: Bruising (Still some bruising around the surgical incision but it 's healing nicely) Neurological: Reports: Weakness. Denies: Headache, Tremors Psychiatric: Reports: No Symptoms ED EXAM, GENERAL - Physical Exam Exam: See Below Exam Limited By: No Limitations General Appearance: Alert, No Apparent Distress Eye Exam: Bilateral Eye: Normal Inspection Throat/Mouth: Normal Inspection, Other (Normal hydration) Head: Atraumatic Neck: Supple Respiratory/Chest: No Respiratory Distress, Lungs Clear Cardiovascular: Regular Rate, Rhythm. No: Tachycardia GI/Abdominal: Normal Bowel Sounds, Soft, Other (Incision looks like it's healing nicely, no significant distention) Extremities: No: Pedal Edema Neurological: Alert, Oriented, No Motor/Sensory Deficits Psychiatric: Normal Affect, Normal Mood Skin Exam: Warm, Dry Course - Vital Signs Last Recorded V/S: Last Vital Signs Temp 98.0 F 06/09/18 11:12 Pulse 76 06/09/18 11:12 Resp 16 06/09/18 11:12 BP 118/75 06/09/18 11:12 Pulse Ox 96 06/09/18 11:12 - Orders/Labs/Meds Labs: Laboratory Tests 06/06/18 06/06/18 06/06/18 Range/Units 16:48 16:49 16:49 WBC 15.7 H (4.5-11.0) K/uL RBC 3.17 L (3.30-5.50) M/uL Hgb 10.3 L (12.0-15.0) g/dL Hct 30.8 L (36.0-48.0) % MCV 97 (80-98) fL MCH 33 H (27-31) pg MCHC 33 (32-36) % Plt Count 441 H (150-400) K/uL Neut % (Auto) 86 H (36-66) % Lymph % (Auto) 8 L (24-44) % [place] % (Auto) 6 (2-6) % Eos % (Auto) 0 L (2-4) % Baso % (Auto) 0 (0-1) % Sodium 128 L (140-148) mmol/L Potassium 3.7 (3.6-5.2) mmol/L Chloride 93 L (100-108) mmol/L Carbon Dioxide 27 (21-32) mmol/L Anion Gap 11.7 (5.0-14.0) mmol/L BUN 17 D (7-18) mg/dL Creatinine 1.4 H D (0.6-1.0) mg/dL Est Cr Clr Drug Dosing 27.81 mL/min Estimated GFR (MDRD) 37 L (>60) Glucose 114 H (74-106) mg/dL Lactic Acid 1.4 (0.4-2.0) mmol/L Calcium 7.8 L (8.5-10.1) mg/dL Total Bilirubin 0.5 (0.2-1.0) mg/dL AST 25 (15-37) U/L ALT 28 (12-78) U/L Alkaline Phosphatase 84 (46-116) U/L Total Protein 5.3 L (6.4-8.2) g/dL Albumin 2.2 L (3.4-5.0) g/dL Globulin 3.1 (2.3-3.5) g/dL Albumin/Globulin Ratio 0.7 L (1.2-2.2) Meds: Medications Discontinued Medications Generic Name Dose Route Start Last Admin Trade Name Freq PRN Reason Stop Dose Admin Acetaminophen 1,000 mg 06/09/18 09:00 06/09/18 09:00 Tylenol Extra Strength PO 1,000 mg Q6H DOM Administration Dicyclomine HCl 10 mg 06/08/18 07:31 Bentyl PO QIDACANDBED PRN gas and bloating Fentanyl Confirm 06/07/18 07:35 Sublimaze Administered 06/07/18 07:36 Dose 100 mcg .ROUTE .STK-MED ONE Sodium Chloride 1,000 mls @ 1,000 mls/hr 06/06/18 16:30 06/06/18 16:47 Normal Saline IV 1,000 mls/hr ASDIRECTED DOM Administration Lactated Ringer's 1,000 mls @ 1,000 mls/hr 06/06/18 18:03 06/06/18 18:08 Ringers, Lactated IV 06/06/18 19:02 1,000 mls/hr BOLUS ONE Administration Lactated Ringer's 1,000 mls @ 150 mls/hr 06/06/18 19:45 06/07/18 08:40 Ringers, Lactated IV 150 mls/hr ASDIRECTED DOM Administration Multivitamins/Minerals 10 ml/ 1,011 mls @ 125 mls/hr 06/07/18 11:00 06/07/18 18:42 Chromium/Copper/Manganese/ IV 06/08/18 02:59 Not Given Seleni/Zn 1 ml/ Dextrose/ Q8H DOM Lactated Ringer's Dextrose/Lactated Ringer's 1,000 mls @ 125 mls/hr 06/08/18 03:00 Dextrose 5%-Lactated Ringers IV ASDIRECTED DOM Fluconazole/Sodium Chloride 100 mls @ 100 mls/hr 06/07/18 12:00 06/09/18 12: 13 200 mg/ Premix IV 100 mls/hr Q24H DOM Administration Potassium Phosphate 22.5 mmole 257.5 mls @ 86 mls/hr 06/08/18 09:00 06/08/18 13:47 / Sodium Chloride IV 06/08/18 14:59 86 mls/hr Q3H DOM Administration Dextrose/Lactated Ringer's 1,000 mls @ 0 mls/hr 06/08/18 07:15 06/09/18 07:39 Dextrose 5%-Lactated Ringers IV 25 mls/hr ASDIRECTED DOM Administration KVO Magnesium Sulfate 2 gm/ Premix 50 mls @ 25 mls/hr 06/08/18 10:00 06/09/18 10: 00 IV 06/11/18 05:59 25 mls/hr Q6H DOM Administration Potassium Chloride 30 meq/ 268 mls @ 90 mls/hr 06/08/18 15:00 06/08/18 17:45 Lidocaine HCl 3 ml/ Sodium IV 06/08/18 17:58 90 mls/hr Chloride ONETIME ONE Administration Inulin 4.5 gm 06/07/18 21:00 06/09/18 10:00 Fiber Choice PO 4.5 gm BID DOM Administration Lactobacillus Rhamnosus 2 cap 06/07/18 21:00 06/09/18 09:00 Culturelle PO 2 cap BID DOM Administration Lisinopril 20 mg 06/07/18 10:00 06/07/18 10:09 Prinivil PO 06/07/18 10:01 20 mg ONETIME ONE Administration Metoclopramide HCl 10 mg 06/07/18 10:00 06/09/18 10:00 Reglan IVPUSH 10 mg Q6H DOM Administration Midazolam HCl Confirm 06/07/18 07:36 Versed 1 Mg/Ml Administered 06/07/18 07:37 Dose 2 mg .ROUTE .STK-MED ONE Pantoprazole Sodium 40 mg 06/07/18 08:10 06/07/18 08:07 Protonix Iv IVPUSH 06/07/18 08:11 40 mg ONETIME ONE Administration Pantoprazole Sodium 40 mg 06/08/18 09:00 06/08/18 09:30 Protonix Iv IV 40 mg Q24H DOM Administration Pantoprazole Sodium 40 mg 06/08/18 21:00 06/09/18 10:00 Protonix Iv IV 40 mg Q12H DOM Administration Propofol Confirm 06/07/18 07:35 Diprivan 20 Ml Administered 06/07/18 07:36 Dose 200 mg .ROUTE .STK-MED ONE Vancomycin HCl 200 mg 06/07/18 16:00 06/08/18 11:15 Vancocin 250 Mg/5 Ml Soln PO 200 mg QID DOM Administration - Re-Assessments/Exams Free Text/Narrative Re-Assessment/Exam: 06/06/18 16:51 Because of the hypotension the patient was bolused with 1 L of normal saline, blood cultures and lactic acid CBC and CMP were obtained. She was afebrile and her blood pressure responded rapidly to fluids. Departure - Departure Time of Disposition: 19:40 Disposition: Admitted As Inpatient 67 Condition: Fair Clinical Impression: Dehydration, Weakness generalized - Discharge Information
[2018-06-06] MEDS ORDERED: Lactated Ringers 1,000 ML IV ONE (18:03)
--- NOTE | 2018-06-06 19:25 | PCM.HP ---
H&P History of Present Illness - General Date of Service: 06/06/18 Admit Problem/Dx: Admission Diagnosis/Problem Admission Diagnosis/Problem Dehydration Source of Information: Patient - History of Present Illness Initial Comments - Free Text/Narative: Has had difficulty swallowing since surgery and unable to swallow for the last 10 days taking small amount of liquids. She was weak today and faint and found low blood pressure and dizzy. Blood pressure was low coming to the ER today. Onset of Symptoms: Reports: Gradual Associated Symptoms: Reports: Nausea/Vomiting, Weakness - Related Data Allergies/Adverse Reactions: Allergies Allergy/AdvReac Type Severity Reaction Status Date / Time venom-honey bee Allergy Severe Anaphylactic Verified 05/16/18 07:54 [bee venom (honey bee)] Shock lovastatin Allergy Cannot Verified 05/17/18 11:00 Remember Home Medications: Home Meds Hydrochlorothiazide 12.5 mg PO DAILY 11/19/14 [History] Lisinopril 40 mg PO DAILY 11/19/14 [History] amLODIPine Besylate [Amlodipine Besylate] 5 mg PO DAILY 11/19/14 [History] Acetaminophen [Tylenol Extra Strength] 1,000 mg PO Q6H tablet 05/15/18 [Rx] Inulin [Fiber Choice] 4.5 gm PO BID tab.chew 05/25/18 [Rx] Lactobacillus Rhamnosus GG [Culturelle] 2 cap PO BID cap 05/25/18 [Rx] Loperamide [Imodium] 2 mg PO Q6H cap 05/25/18 [Rx] Vancomycin 250 mg PO Q6H #28 cap 05/25/18 [Rx] Past Medical History HEENT History: Reports: Impaired Vision Other HEENT History: wears glasses Cardiovascular History: Reports: Hypertension Gastrointestinal History: Reports: Chronic Constipation, Chronic Diarrhea, Colon Polyp, Fecal Incontinence Other Gastrointestinal History: The chronic diarrhea and constipation was going on for 3-4 months prior to surgery. Patient states it was always one or the other never a soft formed bowel movement. 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 Musculoskeletal History: Reports: Arthritis Neurological History: Reports: Concussion Hematologic History: Reports: Anemia Dermatologic History: Reports: Eczema - Infectious Disease History Infectious Disease History: Reports: Chicken Pox, Measles, Mumps - Past Surgical History HEENT Surgical History: Reports: Cataract Surgery, Other (See Below) Other HEENT Surgeries/Procedures: wisdom teeth GI Surgical History: Reports: Colon, Colonoscopy, Hernia, Abdominal, Hernia, Inguinal, Polypectomy, Small Bowel Female Surgical History: Reports: Hysterectomy, Oophorectomy Neurological Surgical History: Reports: Other (See Below) Other Neurological Surgeries/Procedures: coccyx removed due to a "growth" Musculoskeletal Surgical History: Reports: Other (See Below) Other Musculoskeletal Surgeries/Procedures:: Torn meniscus on right knee. Surgery for the wrist in 2000. Broke both left ulna and radius. Had reconstructive surgery in [place]. Social & Family History - Family History Family Medical History: Noncontributory Other Cardiac Family History: Denies family history of [place], atherosclosis, HF. Other GI Family History: Mom had colon cancer. Brother passed had gastric cancer and a cancerous neck mass diagnosed in his 60s. Dad had gastric cancer. Brother 24 of stomach cancer. Denies diverticulitis and Chrons disease. Neurological: Reports: Seizure Endocrine/Metabolic: Reports: Hyperthyroidism Oncologic: Reports: Breast, Colon, Other (See Below) Other Oncologic Family History: stomach - Tobacco Use Smoking Status *Q: Never Smoker - Caffeine Use Caffeine Use: Reports: Coffee Caffeine Use Comment: about 1 cup per day - Recreational Drug Use Recreational Drug Use: No - Living Situation & Occupation Living situation: Reports: (Living at home alone. 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[employer].) H&P Review of Systems - Review of Systems: Review Of Systems: See Below General: Reports: No Symptoms, Weakness Pulmonary: Reports: No Symptoms Cardiovascular: Reports: No Symptoms Gastrointestinal: Reports: Difficulty Swallowing Genitourinary: Reports: No Symptoms Musculoskeletal: Reports: No Symptoms Skin: Reports: No Symptoms Psychiatric: Reports: No Symptoms Neurological: Reports: No Symptoms Exam - Exam Exam: See Below - Vital Signs Vital Signs: Last Vital Signs Temp 98.1 F 06/06/18 16:22 Pulse 72 06/06/18 18:15 Resp 14 06/06/18 18:15 BP 103/54 L 06/06/18 18:15 Pulse Ox 97 06/06/18 18:15 Weight: 130 lb 4.691 oz - Exam General: Alert, Oriented, 4 HEENT: PERRLA, Hearing Intact, Mucosa Moist & [place], Nares Patent, Normal Nasal Septum, Posterior Pharynx Clear, Conjunctiva Clear, EOMI, EACs Clear, TMs Clear Neck: Supple, Trachea Midline, 2 Lungs: Clear to Auscultation, Normal Respiratory Effort Cardiovascular: Regular Rate, Regular Rhythm GI/Abdominal Exam: Normal Bowel Sounds, Soft, Non-Tender, No Organomegaly, No Distention, No Abnormal Bruit, No Mass, Pelvis Stable Extremities: Normal Inspection, Normal Range of Motion, Non-Tender, No Pedal Edema, Normal Capillary Refill Peripheral Pulses: 1+: Radial (L), Radial (R) DTR: 1+: Bicep (L), Bicep (R) - Patient Data Lab Results Last 24 hrs: Laboratory Results - last 24 hr 06/06/18 06/06/18 06/06/18 Range/Units 16:48 16:49 16:49 WBC 15.7 H (4.5-11.0) K/uL RBC 3.17 L (3.30-5.50) M/uL Hgb 10.3 L (12.0-15.0) g/dL Hct 30.8 L (36.0-48.0) % MCV 97 (80-98) fL MCH 33 H (27-31) pg MCHC 33 (32-36) % Plt Count 441 H (150-400) K/uL Neut % (Auto) 86 H (36-66) % Lymph % (Auto) 8 L (24-44) % [place] % (Auto) 6 (2-6) % Eos % (Auto) 0 L (2-4) % Baso % (Auto) 0 (0-1) % Sodium 128 L (140-148) mmol/L Potassium 3.7 (3.6-5.2) mmol/L Chloride 93 L (100-108) mmol/L Carbon Dioxide 27 (21-32) mmol/L Anion Gap 11.7 (5.0-14.0) mmol/L BUN 17 D (7-18) mg/dL Creatinine 1.4 H D (0.6-1.0) mg/dL Est Cr Clr Drug Dosing 27.81 mL/min Estimated GFR (MDRD) 37 L (>60) Glucose 114 H (74-106) mg/dL Lactic Acid 1.4 (0.4-2.0) mmol/L Calcium 7.8 L (8.5-10.1) mg/dL Total Bilirubin 0.5 (0.2-1.0) mg/dL AST 25 (15-37) U/L ALT 28 (12-78) U/L Alkaline Phosphatase 84 (46-116) U/L Total Protein 5.3 L (6.4-8.2) g/dL Albumin 2.2 L (3.4-5.0) g/dL Globulin 3.1 (2.3-3.5) g/dL Albumin/Globulin Ratio 0.7 L (1.2-2.2) Result Diagrams: 06/08/18 04:00 06/08/18 04:00 Problem List Initiated/Reviewed/Updated: Yes Orders Last 24hrs: Active Orders 24 hr Category Date Time Status Patient Status [ADT] Routine ADT 06/06/18 19:12 Ordered Height and Weight [RC] DAILY Care 06/06/18 19:12 Ordered Intake and Output [RC] QSHIFT Care 06/06/18 19:14 Ordered Oxygen Therapy [RC] PRN Care 06/06/18 19:12 Ordered Up With Assistance [RC] ASDIRECTED Care 06/06/18 19:12 Ordered VTE/DVT Education [RC] Per Unit Routine Care 06/06/18 19:12 Ordered Vital Signs [RC] Q4H Care 06/06/18 19:12 Ordered CBC W/O DIFF,HEMOGRAM [HEME] AM Lab 06/07/18 05:11 Ordered CULTURE BLOOD [BC] Urgent Lab 06/06/18 16:20 Received CULTURE BLOOD [BC] Urgent Lab 06/06/18 16:20 Received Sodium Chloride 0.9% [Normal Saline] 1,000 ml Med 06/06/18 16:30 Active IV ASDIRECTED Blood Culture x2 Reflex Set [OM.PC] Urgent Oth 06/06/18 16:26 Ordered Resuscitation Status Routine Resus Stat 06/06/18 19:12 Ordered Medication Orders Sodium Chloride (Normal Saline) 1,000 mls @ 1,000 mls/hr IV ASDIRECTED DOM Last Admin: 06/06/18 16:47 Dose: 1,000 mls/hr Assessment/Plan Comment:: Assessment/Plan: Dysphagia: Dr. Estrada Sanchez is planning as EGD tomorrow. #2. Dehydration: Will rehydrate #3. History of thyroid dysfunction: #4. History of HTN #5. S/P bowel resection
[2018-06-06] MEDS: Lactated Ringers 1,000 ML IV SCH (19:58)
[2018-06-07] MEDS: Lactated Ringers 1,000 ML IV SCH ×2 (02:34→08:40)
[2018-06-07] MEDS ORDERED: fentaNYL 100 MCG/2 ML SDV ONE (07:35)
[2018-06-07] MEDS ORDERED: Propofol 200 MG/20 ML SDV ONE (07:35)
[2018-06-07] MEDS ORDERED: Midazolam 1 MG/ML 2 ML SDV ONE (07:36)
[2018-06-07] MEDS ORDERED: Pantoprazole 40 MG Vial IVPUSH ONE (08:10)
--- NOTE | 2018-06-07 09:08 | PN ---
DATE OF SERVICE: 06/07/2018 SUBJECTIVE: Merle was admitted yesterday for dysphagia and dehydration. She states that she has not been able to swallow without food getting stuck yesterday. She felt like she was getting dehydrated. She was having difficulty in even swallowing liquids. She did come to the emergency room and was admitted. Blood pressure was low at 69/43 in the emergency room. REVIEW OF SYSTEMS: CONSTITUTIONAL: Reports fever, chills, weakness, and decreased appetite. HEENT: Pain with swallowing. RESPIRATORY: No shortness of breath or cough. CARDIOVASCULAR: Denies chest pain, fast or irregular heartbeats. ENDOCRINE: Extreme fatigue and weakness. GI: Diarrhea, having 2 loose stools in the last 2 days; nausea along with the dysphagia. Incision remains to be open, but it is healing. : Negative for UTI signs and symptoms. SKIN: Negative. NEURO: Reports weakness, some unsteadiness on feet. PSYCHIATRIC: Mood and affect appropriate. MEDICATIONS: See EMR. PAST MEDICAL HISTORY: See EMR. SOCIAL HISTORY: . She lives alone. Has 2 daughters, who are actively involved. Occupation, retired. FAMILY HISTORY: Mom had colon cancer. Brother with gastric cancer and cancerous neck mass. Father had gastric cancer. OBJECTIVE: GENERAL: Merle Valiente is a 72-year-old female. VITAL SIGNS: Height is 5 feet 1 inch. Weight is 130 pounds. TPR is 97.9, 73, 18, and blood pressure 100/47. HEENT: Negative. NECK: Supple. HEART: Regular rate and rhythm. LUNGS: Clear. ABDOMEN: Soft and nontender. Incision is healing well and remains to be open. EXTREMITIES: Without peripheral edema. SKIN: Without rash. ASSESSMENT: Dysphagia. PLAN: 1. EGD with possible dilation today. 2. No Robinul. 3. Check CMP and labs. 4. Check CBC, CMP, phos, and BNP in a.m. 5. Check blood pressure. Do not check blood pressure in the left arm. Put on restricted band. 6. We will recheck p.r.n. or in a.m. Norma Judd PA-C /[id number]
[2018-06-07] MEDS ORDERED: Lisinopril 20 MG Tab PO ONE (10:00)
--- NOTE | 2018-06-07 10:00 | PN ---
DATE OF SERVICE: 06/07/2018 The patient was noted to have a severe esophagitis today, for her dysphagia. We will begin her on b.i.d. Protonix along with Reglan to augment gastric emptying. She probably has some fungal overgrowth within the esophagus. We will give her some Diflucan; otherwise, will be continued on vancomycin for the recent diagnosis of C. difficile along with having probiotic capsules and Fiber Choice and try full liquid diet with yogurt added. We will check some labs in the morning. Rich Sanchez MD /[id number]
[2018-06-07] MEDS: MVI, Adult with Vitamin K 10 ML, Chromium/Copper/Mang/Selen/Zn 1 ML in Dextrose 5%-Lact... IV SCH ×9 (10:07→18:42)
[2018-06-07] MEDS: Metoclopramide 10 MG/2 ML SDV IVPUSH SCH ×3 (10:09→21:51)
--- NOTE | 2018-06-07 12:17 | OR ---
DATE OF PROCEDURE: 06/07/2018 PREOPERATIVE DIAGNOSIS: Severe dysphagia. POSTOPERATIVE DIAGNOSES: Severe dysphagia associated with: 1. Marked ulcerated esophagitis. 2. Mild antral gastritis. OPERATIVE PROCEDURE: Esophagogastroduodenoscopy with: 1. Biopsies of esophagogastric junction for histologic evaluation. 2. Biopsies of antrum for CLOtest. ANESTHESIA: IV sedation. INDICATIONS FOR PROCEDURE: The patient was admitted overnight with increasingly severe dysphagia and is undergoing upper endoscopy with biopsies and/or dilation. Potential risks including bleeding and perforation were discussed, and the patient wishes to proceed. DETAILS OF THE PROCEDURE: The patient was taken to the operating room, placed in the left lateral decubitus position. IV sedation was administered, after which the upper GI endoscope was passed orally through the length of the esophagus and into the stomach with retroflexion view of the fundus; thereafter through the pyloric channel entering the proximal duodenum. Findings included normal hypopharynx, larynx, and upper esophageal sphincter. However, beginning in the esophagus, essentially the entire body was involved with esophagitis. There were several linear ulcers extending as high as two-thirds up in the esophagogastric junction. At the EG junction, there was a quite striking edema and inflammation, all of this likely accounting for the patient's dysphagia. Within the stomach, there was some retained bile but otherwise there was some minor streaks, redness in the antrum without erosions or ulcers and the pyloric channel and duodenum to the junction of the third and fourth portions were unremarkable. The scope was then withdrawn and biopsies were obtained from the antrum and sent for CLOtest for H. pylori. Multiple biopsies were then obtained from the esophagogastric junction and sent for histologic evaluation. Minimal bleeding from the biopsy site was seen and the procedure then concluded. The patient taken to the recovery room in satisfactory condition. Rich Sanchez MD /[id number]
[2018-06-07] MEDS: Fluconazole/Normal Saline 200 MG in Premix Bag 1 BAG IV SCH (13:15)
[2018-06-07] MEDS: Vancomycin 250 MG/5 ML ML Oral Solution PO SCH ×2 (15:36→21:51)
[2018-06-07] MEDS: Inulin 1.5 GM Chewable Tab PO SCH (21:50)
[2018-06-07] MEDS: Lactobacillus Rhamnosus GG (Probiotic) Cap PO SCH (21:51)
[2018-06-08] MEDS ORDERED: Dextrose 5%-Lactated Ringers 1,000 ML IV SCH (03:00)
[2018-06-08] MEDS: Vancomycin 250 MG/5 ML ML Oral Solution PO SCH ×2 (05:31→11:15)
[2018-06-08] MEDS: Metoclopramide 10 MG/2 ML SDV IVPUSH SCH ×4 (05:31→21:36)
[2018-06-08] MEDS ORDERED: Dicyclomine 10 MG Cap PO PRN (07:31)
--- NOTE | 2018-06-08 08:27 | PN ---
DATE OF SERVICE: 06/08/2018 SUBJECTIVE: Merle had an EGD yesterday which revealed severe esophagitis. She is drinking more. Her oral intake was 1630. She had 2 BMs. LABORATORY DATA: Labs this morning; hemoglobin 10.6. Potassium 3.1, sodium is 136, calcium 8.1, phosphorus 2.7, magnesium is 1.2, and BNP 365. REVIEW OF SYSTEMS: HEENT: Negative. NECK: Negative. CHEST: No chest pain, shortness of breath, fast or irregular heartbeat. LUNGS: No cough. ABDOMEN: Reports incisional pain, states after she eats she gets distended, bloated and has a lot of gas. She states when she passes gas that she has a lot of pain, swallowing has improved. EXTREMITIES: Negative. NEURO: No headaches, dizziness. PSYCHIATRIC: Negative. Remainder of review of systems negative for any pertinent positives and negatives. OBJECTIVE: GENERAL: Merle Valiente is a 72-year-old female. She is alert and orientated. She does look uncomfortable. VITAL SIGNS: TPR 98.8, 80, 20, blood pressure 113/53. HEENT: Negative. NECK: Supple. HEART: Regular rate and rhythm. LUNGS: Clear. ABDOMEN: Nondistended. Generalized tenderness. Incision dressing is dry and intact. Abdominal binder is on. EXTREMITIES: Without peripheral edema. ASSESSMENT: Esophagogastroduodenoscopy with severe esophagitis. PLAN: 1. Soft solid diet. 2. KCl 30 mEq IV one time. 3. K-Phos 45 millimoles IV one time. 4. Decrease IV to TKO. 5. Check CBC, CMP, BNP, and phos in a.m. 6. Magnesium 2 g IV q.6 hours x72 hours. 7. Bentyl 10 mg q.4 hours p.r.n. abdominal gas and bloating. 8. Good pulmonary toilet. 9. We will evaluate p.r.n. or in a.m. 10.Plan discharge in a.m. Norma Judd PA-C /[id number]
[2018-06-08] MEDS ORDERED: Potassium Chloride 40 MEQ/20 ML SDV IV ONE (09:00)
[2018-06-08] MEDS ORDERED: Pantoprazole 40 MG Vial IV SCH (09:00)
[2018-06-08] MEDS: Lactobacillus Rhamnosus GG (Probiotic) Cap PO SCH ×2 (09:29→21:26)
[2018-06-08] MEDS: Inulin 1.5 GM Chewable Tab PO SCH ×2 (09:30→21:26)
[2018-06-08] MEDS: Potassium Phosphates 22.5 MMOLE in Sodium Chloride 0.9% 250 ML IV SCH ×2 (10:29→13:47)
[2018-06-08] MEDS: Magnesium Sulfate/Water 2 GM in Premix Bag 1 BAG IV SCH ×3 (11:03→21:37)
[2018-06-08] MEDS: Fluconazole/Normal Saline 200 MG in Premix Bag 1 BAG IV SCH (12:26)
[2018-06-08] MEDS ORDERED: POTASSIUM CHLORIDE IV ONE (15:00)
[2018-06-08] MEDS ORDERED: LIDOCAINE 1% IV ONE (15:00)
[2018-06-08] MEDS ORDERED: SODIUM CHLORIDE 0.9% IV ONE (15:00)
[2018-06-08] MEDS: Dextrose 5%-Lactated Ringers 1,000 ML IV SCH (15:43)
[2018-06-08] MEDS: Pantoprazole 40 MG Vial IV SCH (21:33)
[2018-06-09] MEDS: Metoclopramide 10 MG/2 ML SDV IVPUSH SCH ×2 (04:18→10:00)
[2018-06-09] MEDS: Magnesium Sulfate/Water 2 GM in Premix Bag 1 BAG IV SCH ×2 (04:19→10:00)
[2018-06-09] MEDS: Dextrose 5%-Lactated Ringers 1,000 ML IV SCH (07:39)
[2018-06-09] MEDS: Lactobacillus Rhamnosus GG (Probiotic) Cap PO SCH (09:00)
[2018-06-09] MEDS ORDERED: Acetaminophen 500 MG Tab PO SCH (09:00)
--- NOTE | 2018-06-09 09:16 | DISCH ---
ADMISSION DIAGNOSES: Nausea, vomiting, dysphagia, Clostridium difficile, SP colectomy and hysterectomy. DISCHARGE DIAGNOSES: 1. EGD with severe esophagitis. 2. Resolution of dehydration, nausea and vomiting. HISTORY: Merle Valiente is a 72-year-old female who had difficulty swallowing since surgery and was weak and dehydrated and she also was on medication for C. difficile and was having several stools. She went to the emergency room, feeling dehydrated after being evaluated by home healthcare nurse. She was evaluated in the emergency room and admitted to the second floor. Merle was started on IV fluids. She had an EGD which revealed severe esophagitis. She was started on Protonix 40 mg IV and she was able to start eating. Her diet was progressed from clear liquids to full liquid and to soft solid. Vital signs remained stable and nausea did clear. Her labs were checked daily. There was a restrictive band on her left arm, not to check blood sugars on her left arm. Her diet gradually increased. Vital signs remained stable. She was tolerating a soft solid diet and K-Phos and KCl were replaced along with her magnesium. She was ready to be discharged to home on 06/09/2018 without any complications. REVIEW OF SYSTEMS: HEENT: Negative. NECK: Negative. CHEST: No chest pain, shortness of breath. LUNGS: Denies any cough. ABDOMEN: Has been having 1 to 2 loose stools daily. Nausea and vomiting resolved. Appetite has increased and is having no pain, after eating less bloating. : No UTI signs and symptoms. EXTREMITIES: Continues to have her chronic mild joint pain and stiffness. SKIN: Without rash. PSYCHIATRIC: Mood and affect appropriate. Remainder of review of systems negative for any pertinent positives and negatives. OBJECTIVE: GENERAL: Merle Valiente is a pleasant 72-year-old female. VITAL SIGNS: Height is 5 feet 1 inch, weight is 138 pounds. TPR 99.3, 87, 16, blood pressure 110/59. HEENT: Negative. NECK: Supple. HEART: Regular rate and rhythm. LUNGS: Clear. ABDOMEN: Soft and nontender. Her incision remains to be slightly opened and it is healing well. EXTREMITIES: Without peripheral edema. NEURO: Intact. PSYCHIATRIC: Mood and affect appropriate. DISPOSITION: Discharged to home with resume previous home health care orders with Juanito Banks. Followup appointment with Norma Judd PA-C on 06/16/2018 at 9:30 a.m. She is to bring a stool sample with her to check for C. difficile. HOME MEDICATIONS: 1. Protonix 40 mg p.o. b.i.d. #60, 5 refills. 2. Magnesium oxide 400 mg p.o. daily #100 and no refills. To resume home medications of Tylenol Extra Strength 1000 mg oral q.6 hours, hydrochlorothiazide 12.5 mg oral daily, Fiber Choice 4.5 g oral twice daily p.r.n., probiotic 2 capsules oral twice daily, lisinopril 40 mg oral daily, Imodium 2 mg oral every 6 hours p.r.n., and amlodipine besylate 5 mg oral daily. Discontinue taking the vancomycin. DISCHARGE INSTRUCTIONS: Diet after discharge, soft solid, low residue diet. Activity as tolerated. May shower. Notify provider if any fever, nausea, or vomiting.
[2018-06-09] MEDS: Inulin 1.5 GM Chewable Tab PO SCH (10:00)
[2018-06-09] MEDS: Pantoprazole 40 MG Vial IV SCH (10:00)
[2018-06-09] MEDS: Fluconazole/Normal Saline 200 MG in Premix Bag 1 BAG IV SCH (12:13)
== END 2018-06-09 15:35 | disposition home health service (06) | DRG 382 ==
LOC: JP.ED 15:49 → JP.2SS 19:12
PROVIDERS: ADMIT Internal Medicine; ATTEND Internal Medicine
PROC: 0DB48ZX Excision of Esophagogastric Junction, Via Natural or Artificial Opening Endoscopic, Diagnostic (ICD-10-PCS; principal; 2018-06-07)
PROC: 0DB68ZX Excision of Stomach, Via Natural or Artificial Opening Endoscopic, Diagnostic (ICD-10-PCS; 2018-06-07)
DX: K22.10 Ulcer of esophagus without bleeding (principal); K29.70 Gastritis, unspecified, without bleeding; E86.0 Dehydration; R53.1 Weakness; R50.9 Fever, unspecified; I10 Essential (primary) hypertension; R13.10 Dysphagia, unspecified; Z90.49 Acquired absence of other specified parts of digestive tract; Z91.030 Bee allergy status; Z88.8 Allergy status to other drugs, medicaments and biological substances
CPT/HCPCS: 36415; 80053; 83605; 85025; 87040 ×2; 96360; 96361; 99285; J7030; J7120; 83735; 83880; 84100; 85027; 87081; 88305; 88312; A9270-GY; C9113; J1450; J2250; J2704; J2765; J3010; J3475; J3480; J3490; J7042; J7050

== ENCOUNTER 2020-04-30 14:59 | Emergency (ER) | payer MEDICARE ==
--- NOTE | 2020-04-30 15:30 | EDM.PDOC ---
ED HPI GENERAL MEDICAL PROBLEM - General Chief Complaint: Upper Extremity Injury/Pain Stated Complaint: LEFT FOREARM SWOLLEN/BRUISED LUMP Time Seen by Provider: 04/30/20 15:15 Source of Information: Reports: Patient, Old Records History Limitations: Reports: No Limitations - History of Present Illness INITIAL COMMENTS - FREE TEXT/NARRATIVE: 74 yo female presents with swelling and bruising of the L forearm that began this afternoon. There is not a lot of pain. Does not recall any injury. 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 (see below) (none) - Related Data Allergies Allergy/AdvReac Type Severity Reaction Status Date / Time venom-honey bee Allergy Severe Anaphylactic Verified 07/17/18 09:05 [bee venom (honey bee)] Shock lovastatin Allergy Cannot Verified 07/17/18 09:05 Remember Home Meds: Home Meds Hydrochlorothiazide 12.5 mg PO DAILY 11/19/14 [History] Lisinopril 40 mg PO DAILY 11/19/14 [History] Acetaminophen [Tylenol Extra Strength] 1,000 mg PO Q6H tablet 05/15/18 [Rx] Inulin [Fiber Choice] 4.5 gm PO BID tab.chew 05/25/18 [Rx] Lactobacillus Rhamnosus GG [Culturelle] 2 cap PO BID cap 05/25/18 [Rx] Loperamide [Imodium] 2 mg PO Q6H cap 05/25/18 [Rx] Magnesium Oxide 400 mg PO DAILY #100 tab 06/09/18 [Rx] Pantoprazole Sodium [Protonix] 40 mg PO BID #60 tablet.dr 06/09/18 [Rx] Aspirin [Adult Low Dose Aspirin EC] 81 mg PO DAILY 07/17/18 [History] atorvaSTATin [Lipitor] 40 mg PO BEDTIME 07/17/18 [History] Past Medical History HEENT History: Reports: Impaired Vision Other HEENT History: wears glasses Cardiovascular History: Reports: Hypertension Gastrointestinal History: Reports: Chronic Constipation, Chronic Diarrhea, Colon Polyp, Fecal Incontinence Other Gastrointestinal History: The chronic diarrhea and constipation was going on for 3-4 months prior to surgery. Patient states it was always one or the other never a soft formed bowel movement. DIGESTER CAPPER History: Reports: Other DIGESTER CAPPER History: removal of ovaries and uterus. Musculoskeletal History: Reports: Arthritis Neurological History: Reports: Concussion Hematologic History: Reports: Anemia Dermatologic History: Reports: Eczema - Infectious Disease History Infectious Disease History: Reports: Chicken Pox, Measles, Mumps - Past Surgical History HEENT Surgical History: Reports: Cataract Surgery, Other (See Below) Other HEENT Surgeries/Procedures: wisdom teeth GI Surgical History: Reports: Colon, Colonoscopy, Hernia, Abdominal, Hernia, Inguinal, Polypectomy, Small Bowel Female Surgical History: Reports: Hysterectomy, Oophorectomy Neurological Surgical History: Reports: Other (See Below) Other Neurological Surgeries/Procedures: coccyx removed due to a "growth" Musculoskeletal Surgical History: Reports: Other (See Below) Other Musculoskeletal Surgeries/Procedures:: Torn meniscus on right knee. Surgery for the wrist in 2000. Broke both left ulna and radius. Had reconstructive surgery in [place]. Social & Family History - Family History Family Medical History: Noncontributory Other Cardiac Family History: Denies family history of PR, atherosclosis, HF. Other GI Family History: Mom had colon cancer. Brother passed had gastric cancer and a cancerous neck mass diagnosed in his 60s. Dad had gastric cancer. Brother 24 of stomach cancer. Denies diverticulitis and Chrons disease. Neurological: Reports: Seizure Endocrine/Metabolic: Reports: Hyperthyroidism Oncologic: Reports: Breast, Colon, Other (See Below) Other Oncologic Family History: stomach - Caffeine Use Caffeine Use: Reports: Coffee Caffeine Use Comment: about 1 cup per day - Living Situation & Occupation Living situation: Reports: (Living at home alone. 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[employer].) Review of Systems - Review of Systems Review Of Systems: See Below Constitutional: Reports: No Symptoms Respiratory: Reports: No Symptoms Cardiovascular: Reports: No Symptoms GI/Abdominal: Reports: No Symptoms Skin: Reports: Bruising (L lateral forearm), Lumps (L lateral forearm x one) Neurological: Reports: No Symptoms ED EXAM, GENERAL - Physical Exam Exam: See Below Exam Limited By: No Limitations General Appearance: Alert, WD/WN, No Apparent Distress Respiratory/Chest: Lungs Clear, Normal Breath Sounds, No Accessory Muscle Use Cardiovascular: Regular Rate, Rhythm, No Edema Extremities: Normal Range of Motion, Non-Tender, No Pedal Edema, Other ( hematoma L forearm). No: Normal Inspection, Pedal Edema, Limited Range of Motion, Increased Warmth Neurological: Alert, Oriented, CN II-XII Intact, Normal Cognition, No Motor/ Sensory Deficits Psychiatric: Normal Affect, Normal Mood Skin Exam: Warm, Dry, Intact, No Rash, Ecchymosis (hematoma L lateral forearm). No: Erythema, Increased Warmth, Petechiae, Wound/Incision Course - Vital Signs Last Recorded V/S: Last Vital Signs Temp 36.4 C 04/30/20 15:15 Pulse 77 04/30/20 15:15 Resp 16 04/30/20 15:15 BP 132/62 04/30/20 15:15 Pulse Ox 95 04/30/20 15:15 Departure - Departure Time of Disposition: 15:29 Disposition: Home, Self-Care 01 Condition: Good Clinical Impression: Hematoma - Discharge Information *PRESCRIPTION DRUG MONITORING PROGRAM REVIEWED*: No *COPY OF PRESCRIPTION DRUG MONITORING REPORT IN PATIENT [place]: No Referrals: Cristine Liang MD [Primary Care Provider] - Additional Instructions: Wear SHERRY wrap for gentle compression. Acetaminophen as needed for pain relief. Recheck with your provider as needed. Sepsis Event Note - Focused Exam Vital Signs: Vital Signs Temp Pulse Resp BP Pulse Ox 04/30/20 15:15 36.4 C 77 16 132/62 95 Date Exam was Performed: 04/30/20 Time Exam was Performed: 15:25
== END 2020-04-30 15:40 | disposition home or self-care (01) ==
LOC: JP.ED 14:59
DX: S50.12XA Contusion of left forearm, initial encounter (principal); Z91.030 Bee allergy status; Z88.8 Allergy status to other drugs, medicaments and biological substances; Z79.82 Long term (current) use of aspirin; Z79.4 Long term (current) use of insulin; Z79.899 Other long term (current) drug therapy; M19.90 Unspecified osteoarthritis, unspecified site; X58.XXXA Exposure to other specified factors, initial encounter
CPT/HCPCS: 99283

== ENCOUNTER 2023-12-05 19:28 | Emergency (ER) | payer MEDICARE ==
[2023-12-05 20:55] LABS: BASOPHILS PERCENT AUTO 0.1 % (0.1-1.3); EOSINOPHILS PERCENT AUTO 0.2 % (0.0-5.4); HEMATOCRIT 30.1 % (34.3-46.0); HEMOGLOBIN 10.8 g/dL (11.2-15.5); IMMATURE GRAN ABSOLUTE AUTO 0.03 K/uL (0.00-0.23); IMMATURE GRAN PERCENT AUTO 0.3 % (0.0-0.7); LYMPHOCYTES ABSOLUTE AUTO 0.78 K/uL (0.8-3.3); LYMPHOCYTES PERCENT AUTO 8.4 % (11.4-47.7); MEAN CORPUSCULAR HEMOGLOBIN 33.6 pg (31.6-35.5); MEAN CORPUSCULAR HGB CONC 35.9 g/dL (31.6-35.5); MEAN CORPUSCULAR VOLUME 93.8 fL (81.4-99.0); MONOCYTES ABSOLUTE AUTO 1.01 K/uL (0.20-0.90); MONOCYTES PERCENT AUTO 10.9 % (3.3-12.6); NEUTROPHILS PERCENT AUTO 80.1 % (40.0-78.1); PLATELET COUNT,PLT 101 K/uL (130-375); RED BLOOD CELL COUNT 3.21 M/uL (3.77-5.24); WHITE BLOOD CELL COUNT,WBC 9.3 K/uL (3.2-11.0)
[2023-12-05 20:56] LABS: EOSINOPHILS ABSOLUTE AUTO 0.02 K/uL (0.00-0.40)
[2023-12-05 20:57] LABS: BASOPHILS ABSOLUTE AUTO 0.01 K/uL (0.00-0.10)
[2023-12-05 21:24] LABS: A/G RATIO 0.6 (1.2-2.2); ALANINE AMINOTRANSFERASE,ALT 279 U/L (12-78); ALBUMIN 1.8 g/dL (3.4-5.0); ALKALINE PHOSPHATASE 315 U/L (46-116); ASPARTATE AMNIOTRANSFERASE,AST 723 U/L (15-37); BILIRUBIN TOTAL 5.5 mg/dL (0.2-1.0); BLOOD UREA NITROGEN,BUN 19 mg/dL (7-18); CARBON DIOXIDE,CO2 25 mmol/L (21-32); CHLORIDE,CL 100 mmol/L (100-108); CREATININE 2.2 mg/dL (0.6-1.0); EST CRCL DRUG DOSING (CG) 16.16 mL/min; ESTIMATED GFR 23 mL/min (>60); GLUCOSE RANDOM 113 mg/dL (74-106); PROTEIN TOTAL,TP 4.7 g/dL (6.4-8.2); SODIUM,NA 135 mmol/L (140-148)
[2023-12-05 21:26] LABS: ANION GAP 12.3 mmol/L (5.0-14.0); POTASSIUM,K 2.3 mmol/L (3.6-5.2)
[2023-12-05 21:28] LABS: CALCIUM 6.9 mg/dL (8.5-10.1)
[2023-12-05] MEDS ORDERED: Potassium Chloride 20 MEQ Tab.ER PO ONE (21:28)
[2023-12-05] MEDS ORDERED: Potassium Chloride 10 MEQ in Premix Bag 2 BAG IV ONE (21:29)
[2023-12-05] MEDS: Potassium Chloride 10 MEQ in Premix Bag 1 BAG IV SCH ×2 (21:47→22:43)
[2023-12-05 22:11] LABS: TSH ULTRASENSITIVE 5.592 uIU/mL (0.358-3.740)
[2023-12-05 22:17] LABS: INR 2.5; PROTHROMBIN TIME 24.2 sec (9.2-10.6)
== END 2023-12-06 00:12 | disposition home or self-care (01) ==
LOC: JP.ED 19:28
DX: F10.10 Alcohol abuse, uncomplicated (principal); K70.30 Alcoholic cirrhosis of liver without ascites; I10 Essential (primary) hypertension; M19.90 Unspecified osteoarthritis, unspecified site; Z79.4 Long term (current) use of insulin; Z79.82 Long term (current) use of aspirin; Z91.030 Bee allergy status; Z88.8 Allergy status to other drugs, medicaments and biological substances; Z90.710 Acquired absence of both cervix and uterus
CPT/HCPCS: 36415; 71045; 80053; 83605; 83690; 83880; 84443; 85025; 85610; 96365; 96366; 99284; A9270; J3480

== ENCOUNTER 2023-12-07 15:22 | Emergency (ER) | payer MEDICARE ==
[2023-12-07] MEDS ORDERED: Sodium Chloride 0.9% 10 ML Syringe FLUSH PRN (15:42)
[2023-12-07] MEDS ORDERED: Pantoprazole 40 MG Vial IVPUSH ONE (15:58)
[2023-12-07] MEDS ORDERED: Pantoprazole 80 MG in Sodium Chloride 0.9% 100 ML IV SCH (15:59)
[2023-12-07 16:08] LABS: BASOPHILS PERCENT AUTO 0.2 % (0.1-1.3); EOSINOPHILS PERCENT AUTO 0.1 % (0.0-5.4); HEMATOCRIT 42.4 % (34.3-46.0); HEMOGLOBIN 14.3 g/dL (11.2-15.5); IMMATURE GRAN ABSOLUTE AUTO 0.06 K/uL (0.00-0.23); IMMATURE GRAN PERCENT AUTO 0.5 % (0.0-0.7); LYMPHOCYTES PERCENT AUTO 9.3 % (11.4-47.7); MEAN CORPUSCULAR HEMOGLOBIN 33.6 pg (31.6-35.5); MEAN CORPUSCULAR HGB CONC 33.7 g/dL (31.6-35.5); MEAN CORPUSCULAR VOLUME 99.5 fL (81.4-99.0); MONOCYTES ABSOLUTE AUTO 1.29 K/uL (0.20-0.90); NEUTROPHILS ABSOLUTE AUTO 10.27 K/uL (1.0-7.6); NEUTROPHILS PERCENT AUTO 79.9 % (40.0-78.1); RED BLOOD CELL COUNT 4.26 M/uL (3.77-5.24); WHITE BLOOD CELL COUNT,WBC 12.9 K/uL (3.2-11.0)
[2023-12-07 16:09] LABS: BASOPHILS ABSOLUTE AUTO 0.02 K/uL (0.00-0.10); EOSINOPHILS ABSOLUTE AUTO 0.01 K/uL (0.00-0.40); PLATELET COUNT,PLT 88 K/uL (130-375)
[2023-12-07] MEDS ORDERED: Octreotide 100 MCG/ML SDV IVPUSH ONE (16:29)
[2023-12-07] MEDS ORDERED: Octreotide 500 MCG in Sodium Chloride 0.9% 497.5 ML IV SCH (16:30)
[2023-12-07 16:41] LABS: PROTHROMBIN TIME 46.3 sec (9.2-10.6)
[2023-12-07 16:43] LABS: INR 5.1
[2023-12-07] MEDS ORDERED: Sodium Chloride 0.9% 2,000 ML IV ONE (16:47)
[2023-12-07 16:58] LABS: A/G RATIO 0.5 (1.2-2.2); ALANINE AMINOTRANSFERASE,ALT 367 U/L (12-78); ALBUMIN 1.4 g/dL (3.4-5.0); ALKALINE PHOSPHATASE 384 U/L (46-116); BILIRUBIN TOTAL 5.5 mg/dL (0.2-1.0); BLOOD UREA NITROGEN,BUN 31 mg/dL (7-18); CARBON DIOXIDE,CO2 18 mmol/L (21-32); CHLORIDE,CL 101 mmol/L (100-108); EST CRCL DRUG DOSING (CG) 9.61 mL/min; ESTIMATED GFR 12 mL/min (>60); GLUCOSE RANDOM 75 mg/dL (74-106); POTASSIUM,K 3.5 mmol/L (3.6-5.2); PROTEIN TOTAL,TP 4.4 g/dL (6.4-8.2); SODIUM,NA 136 mmol/L (140-148)
[2023-12-07 16:59] LABS: ANION GAP 20.5 mmol/L (5.0-14.0)
[2023-12-07 17:00] LABS: ASPARTATE AMNIOTRANSFERASE,AST 1149 U/L (15-37); CALCIUM 6.7 mg/dL (8.5-10.1); CREATININE 3.7 mg/dL (0.6-1.0)
[2023-12-07] MEDS ORDERED: Norepinephrine Bit/D5W Premix 4 MG in Premix Bag 1 BAG IV SCH (17:04)
[2023-12-07] MEDS ORDERED: cefTRIAXone 1 GM in Sodium Chloride 0.9% 50 ML IV ONE (17:20)
== END 2023-12-07 16:45 ==
LOC: JP.ED 15:22
DX: K92.2 Gastrointestinal hemorrhage, unspecified (principal); K70.30 Alcoholic cirrhosis of liver without ascites; I95.9 Hypotension, unspecified; I10 Essential (primary) hypertension; Z91.030 Bee allergy status; Z88.8 Allergy status to other drugs, medicaments and biological substances; Z79.899 Other long term (current) drug therapy; Z79.82 Long term (current) use of aspirin; Z90.710 Acquired absence of both cervix and uterus
CPT/HCPCS: 36415; 36430; 51702; 80053; 80307; 82272; 83605; 83690; 85025; 85610; 86850; 86900; 86901; 86920; 86922; 87040; 96361; 96365; 96366; 96368; 96376; 99284; 99285; C9113; J0696; J2354; J3490; J7030; J7040; P9017